=== PATIENT | male | born 1945 | race Caucasian/White ===

== ENCOUNTER 2018-10-07 07:43 | Inpatient (IN) | payer MEDICARE, OTHER ==
[2018-10-07] VITALS (9 sets, daily range): BP systolic 94–153; BP diastolic 49–75
[~2018-10-07] VITALS: Ht 170.2 cm; Wt 131.7 kg
[2018-10-07 08:10] LABS: BASO # 0.1 x10^3/uL (0.0-0.2); BASO % 1 % (0-3); EOS # 0.3 x10^3/uL (0.0-0.7); EOS % 4 % (0-3); HEMATOCRIT 29.3 % (39.0-53.0); HEMOGLOBIN 8.9 g/dL (13.0-17.5); LYMPH # 1.3 x10^3/uL (1.0-4.8); LYMPH % 16 % (24-48); MEAN CORPUSCULAR HEMOGLOBIN 27 pg (25-35); MEAN CORPUSCULAR HGB CONC 30 g/dL (31-37); MEAN CORPUSCULAR VOLUME 90 fL (79-100); MONO # 0.7 x10^3/uL (0.0-1.1); MONO % 9 % (0-9); NEUT # 5.4 x10^3uL (1.8-7.7); NEUT % 71 % (31-73); PLATELET COUNT 242 x10^3/uL (140-400); RED BLOOD COUNT 3.27 x10^6/uL (4.30-5.70); RED CELL DISTRIBUTION WIDTH 20.9 % (11.5-14.5); WHITE BLOOD COUNT 7.7 x10^3/uL (4.0-11.0)
--- NOTE | 2018-10-07 08:17 | PHYS DOC ---
Past History Past Medical History: Diabetes Adult General Chief Complaint Chief Complaint: ALTERED MENTAL STATUS HPI HPI Patient is a 72 year old MALE who presents with altered mental status. Patient is a resident at an assisted care facility. He was started on a new antidepressant yesterday and has had a decrease in his mental status since then. Patient is also being treated for wounds in his lower extremities as well as has a urinary catheter. History is limited from the patient because of his decreased mental status. EMS reports that his blood sugar was in the 130s. Review of his medication list shows that he was started on sertraline yesterday[ ] Review of Systems Review of Systems Constitutional: Denies fever or chills [] Eyes: Denies change in visual acuity, redness, or eye pain [] HENT: Denies nasal congestion or sore throat [] Respiratory: Denies cough or shortness of breath [] Cardiovascular: No chest pain or palpitations[] GI: Denies abdominal pain, nausea, vomiting, bloody stools or diarrhea [] : Denies dysuria or hematuria [] Musculoskeletal: Denies back pain or joint pain [] Integument: Denies rash or skin lesions [] Neurologic: D denies headache [] Endocrine: Denies polyuria or polydipsia [] All other systems were reviewed and found to be within normal limits, except as documented in this note. Allergies Allergies Allergies Coded Allergies Type Severity Reaction Last Updated Verified gemfibrozil Allergy Unknown 10/07/18 Yes glipizide Allergy Unknown 10/07/18 Yes niacin Allergy Unknown 10/07/18 Yes Uncoded Allergies Type Severity Reaction Last Updated Verified CLOTH TAPE Allergy Unknown 10/07/18 STATIN Allergy Unknown 10/07/18 Physical Exam Physical Exam Constitutional: Well developed, well nourished, no acute distress, non-toxic appearance. [] HENT: Normocephalic, atraumatic, bilateral external ears normal, oropharynx moist, no oral exudates, nose normal. [] Eyes: PERRLA, EOMI, conjunctiva normal, no discharge. [] Neck: Normal range of motion, no tenderness, supple, no stridor. [] Cardiovascular:Heart rate regular rhythm, no murmur [] Lungs & Thorax: Bilateral breath sounds clear to auscultation [] Abdomen: Bowel sounds normal, soft, no tenderness, no masses, no pulsatile masses. [] Skin: Warm, dry, no erythema, no rash. Patient has dressing on his left foot[] Back: No tenderness, no CVA tenderness. [] Extremities: No tenderness, no cyanosis, no clubbing, ROM intact, no edema. [] Neurologic: Alert and oriented to person, normal motor function, normal sensory function, no focal deficits noted. [] Psychologic: Affect flat, mood normal. [] EKG EKG EKG shows sinus rhythm, rate of 68, normal QRS a 57, QTc of 415 ms, no ST elevation. Nonspecific ST-T wave changes are present[] Radiology/Procedures Radiology/Procedures Head CT does not show any acute changes Chest x-ray shows evidence of congestion[] Course & Med Decision Making Course & Med Decision Making Pertinent Labs and Imaging studies reviewed. (See chart for details) ED course: Patient arrived, was placed in bed, tolerated exam well. Patient was transferred to and from [place] with any complications. After return of the labs and CT findings, patient was started on IV antibiotics, mild hydration was started as well given his CHF diagnosis but also covering for the renal insufficiency, and patient was given Kayexalate for the mild hyperkalemia. Consultation was made with Dr. MARTINEZ from the hospitalist service who will be admitting him. Medical decision making: There does not appear to be a significant stroke syndrome, no mass, no bleed noted on CT scan, patient's blood sugar was appropriate, no evidence of hypoxia, he is not somnolent consistent with narcotics. This may be due to the new antidepressant and so that will be held. Also having the indwelling catheter with subsequent urinary tract infection may also be contributing to altered mental status in a patient requiring assisted care facility.[] Dragon Disclaimer Dragon Disclaimer This electronic medical record was generated, in whole or in part, using a voice recognition dictation system. Departure Departure: Impression: Primary Impression: Altered mental status Additional Impressions: Urinary tract infection Hyperkalemia Renal insufficiency Congestive heart failure Disposition: ADMITTED INPATIENT Condition: STABLE Referrals: KAREN DENNEY MD (PCP) Problem Qualifiers Primary Impression: Altered mental status Altered mental status type: unspecified Qualified Codes: R41.82 - Altered mental status, unspecified Additional Impressions: Urinary tract infection Urinary tract infection type: site unspecified Hematuria presence: without hematuria Qualified Codes: N39.0 - Urinary tract infection, site not specified Congestive heart failure Heart failure type: unspecified Heart failure chronicity: unspecified Qualified Codes: I50.9 - Heart failure, unspecified LISA BUCKNER DO Oct 07, 2018 08:16
[2018-10-07 08:21] LABS: BILIRUBIN,URINE NEG (NEG); CLARITY,URINE CLOUDY; COLOR,URINE YELLOW; GLUCOSE,URINE NEG (NEG)
[2018-10-07 08:22] LABS: BACTERIA,URINE MANY /HPF (0-FEW); HYALINE CASTS, URINE MOD /HPF; NITRITE,URINE POS (NEG); SQUAMOUS EPITHELIAL CELL,UR OCC /LPF; UROBILINOGEN,URINE 0.2 mg/dL (0.2 mg/dL)
--- NOTE | 2018-10-07 08:24 | RAD ---
CT of the head without contrast, 10/07/2018: HISTORY: Altered mental status There is moderate cerebral atrophy. The ventricles are mildly prominent on a compensatory basis. There is no shift of the midline structures. There is no evidence of acute intracranial hemorrhage or mass effect. IMPRESSION: 1. Moderate cerebral atrophy. 2. No acute intracranial abnormality is detected. RS Compliance Statement: One or more of the following individualized dose reduction techniques were utilized for this examination: 1. Automated exposure control 2. Adjustment of the mA and/or kV according to patient size 3. Use of iterative reconstruction technique Electronically signed by: Denis Bennett MD (10/07/2018 8:21 AM) [facility]
[2018-10-07 08:29] LABS: ALBUMIN 2.5 g/dL (3.4-5.0); ALBUMIN/GLOBULIN RATIO 0.5 (1.0-1.7); CALCIUM 8.4 mg/dL (8.5-10.1); CREATININE 1.7 mg/dL (0.7-1.3); GFR 39.6; MAGNESIUM 2.4 mg/dL (1.8-2.4); POTASSIUM 5.8 mmol/L (3.5-5.1); TOTAL BILIRUBIN 0.4 mg/dL (0.2-1.0); TOTAL PROTEIN 7.8 g/dL (6.4-8.2)
--- NOTE | 2018-10-07 08:42 | RAD ---
Portable chest, 10/07/2018: HISTORY: Altered mental status, shortness of breath The left lower chest was not completely included on this exam. The heart appears enlarged with mild vascular congestion. Mild left basilar infiltrate cannot be excluded. Follow-up PA and lateral chest radiographs may be useful for further evaluation, if clinically indicated. Electronically signed by: Denis Bennett MD (10/07/2018 8:39 AM) [facility]
[2018-10-07] MEDS ORDERED: LACTULOSE 20 GM/30 ML SOLUTION. PO ONE (08:45)
[2018-10-07] MEDS ORDERED: ONDANSETRON PF 4 MG/2 ML VIAL. IV PRN (08:45)
[2018-10-07] MEDS ORDERED: ACETAMINOPHEN 325 MG TABLET PO PRN (08:45)
[2018-10-07] MEDS ORDERED: SODIUM POLYSTYRENE SULFONATE 15 GM/60 ML ORAL.SUSP. PO ONE (08:45)
[2018-10-07] MEDS ORDERED: IV NORMAL SALINE 1,000ML 1,000 ML IV SCH (09:00)
[2018-10-07] MEDS ORDERED: IV NORMAL SALINE 50ML 50 ML ONE (09:12)
[2018-10-07] MEDS ORDERED: cefTRIAXone SODIUM 1 GM VIAL IV ONE (09:12)
[2018-10-07 09:40] LABS: HYPOCHROMIA SLIGHT; PLT ESTIMATE ADEQUATE (ADEQUATE); POLYCHROMASIA SLIGHT
[2018-10-07 09:41] LABS: ANISOCYTOSIS MOD; TARGET CELLS PRESENT
--- NOTE | 2018-10-07 11:01 | EKG ---
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
[2018-10-07] MEDS ORDERED: DOCU-109 PO (12:01)
[2018-10-07] MEDS ORDERED: CLOP75TA PO (12:01)
[2018-10-07] MEDS ORDERED: TRAZ-85 PO (12:01)
[2018-10-07] MEDS ORDERED: METO100T7 PO (12:01)
[2018-10-07] MEDS ORDERED: ACET500T68 PO (12:01)
[2018-10-07] MEDS ORDERED: MULT1TAB52 PO (12:01)
[2018-10-07] MEDS ORDERED: FERR325T14 PO (12:01)
[2018-10-07] MEDS ORDERED: MELA3TAB2 PO (12:01)
[2018-10-07] MEDS ORDERED: WARF2TAB PO (12:01)
[2018-10-07] MEDS ORDERED: CETI10TA16 PO (12:01)
[2018-10-07] MEDS ORDERED: OXYC10TA PO (12:01)
[2018-10-07] MEDS ORDERED: ALBU2.5V14 NEB (12:01)
[2018-10-07] MEDS ORDERED: CALC-157 PO (12:01)
[2018-10-07] MEDS ORDERED: PREG150C PO (12:01)
[2018-10-07] MEDS ORDERED: SERT25TA4 PO (12:01)
[2018-10-07] MEDS ORDERED: MESA1.2T PO (12:01)
[2018-10-07] MEDS ORDERED: SERT50TA8 PO (12:01)
[2018-10-07] MEDS ORDERED: TAMS0.4C2 PO (12:01)
[2018-10-07] MEDS ORDERED: CHOL200044 PO (12:01)
[2018-10-07] MEDS ORDERED: EZET10TA26 PO (12:01)
[2018-10-07] MEDS ORDERED: LOPE2CAP88 PO (12:01)
[2018-10-07] MEDS ORDERED: ZINC56.7 TP (12:02)
[2018-10-07] MEDS ORDERED: WARF3TAB54 PO (12:02)
[2018-10-07] MEDS ORDERED: DEXTROSE 50% 25 GM / 50ML DISP.SYRIN. IV PRN (12:15)
[2018-10-07] MEDS: NALOXONE 0.4 MG/ML VIAL. IV PRN ×2 (15:20→17:48)
[2018-10-07 15:39] LABS: BGAS PH 7.24 (7.35-7.46)
--- NOTE | 2018-10-07 15:45 | HP ---
ADMIT DATE: 10/07/2018 HISTORY OF PRESENT ILLNESS: The patient is a 72-year-old patient , who resides at the [facility] and was brought to the Emergency Room with altered mental status. The patient is a resident at an assisted living facility at the [facility], was started on a new antidepressant yesterday and noted has had decrease in mental status since then. He was also treated for wounds in his lower extremities as well as urinary tract infection, history is very limited. The patient is encephalopathic. His blood sugar was reportedly 130 mg by the emergency medical service personnel. He was evaluated in the Emergency Room extensively. His lab work was unremarkable. His serum sodium is normal. He has hyperkalemia, chronic kidney disease. His blood sugar was 154 and urinalysis showed the urine was yellow, cloudy, positive for nitrites and small amount of leukocyte esterase. There are 3-5 rbc's, 11-20 wbc's and too many bacteria. The patient was basically admitted. He has had CT scan of the head, which was unremarkable and showed that there is moderate cerebral atrophy. The ventricles are mildly prominent. On a compensatory basis there is no shift of the midline structures. There is no evidence of acute intracranial hemorrhage or mass effect and was admitted to continue treatment, was given 1 gram of ceftriaxone. He was also given some sodium Kayexalate and lactulose for his hyperkalemia, was admitted for gentle rehydration and to continue with IV antibiotic and to start hopefully the process of physical and occupational therapy once his mental status improves. PAST MEDICAL HISTORY: Significant for congestive heart failure, benign prostatic hypertrophy, hyperlipidemia, peripheral diabetic neuropathy, has chronic venous stasis on both lower extremities, morbid obesity, obstructive sleep apnea, atrial fibrillation, type 2 diabetes mellitus. He is on long-term use of anticoagulation, diabetic foot ulcers, tobacco use, multiple joint pain, hyperkalemia, history of malignant neoplasm of the skin bilateral, pseudophakia effective. He has glaucoma, history of pulmonary embolism, history of deep vein thrombosis. PAST SURGICAL HISTORY: Significant for bilateral knee surgery. He has also renal stone removal. FAMILY HISTORY: Unobtainable. SOCIAL HISTORY: He is ; however, he lives at an assisted living facility in the [facility]. He apparently continued to smoke, does not drink alcohol or use any recreational drugs. He has a saloni chair. ALLERGIES: He is allergic CLOTH TAPE, STATIN, GEMFIBROZIL, GLIPIZIDE, and NIACIN. MEDICATIONS: He is currently on following medications: He is on cetirizine 10 mg once a day. He is on albuterol sulfate 2.5 mg and 0.5 mL by nebulizer 4 times a day, tamsulosin 0.4 mg at bedtime, ferrous sulfate 325 mg daily, warfarin sodium 2 mg every Wednesday, warfarin 3 mg every Wednesday, Wednesday, Wednesday. He is on Plavix 75 mg once a day, Zetia 10 mg once a day, metoprolol tartrate 100 mg twice a day, oxycodone 10 mg every 4 hours as needed, acetaminophen 650 mg 4 times a day, pregabalin 150 mg 3 times a day, sertraline 25 mg once a day, sertraline 50 mg once a day, trazodone 50 mg once a day. He is on calcium carbonate with vitamin D one tablet once a day, loperamide 2 mg twice a day as needed. He is on Colace 100 mg twice a day. Mesalamine 1.2 grams daily, zinc oxide applied topically 3 times a day, cholecalciferol 2000 international units once a day, multivitamin 1 tablet once a day, and melatonin 3 mg at bedtime. REVIEW OF SYSTEMS: By the time I saw him in the floor the patient was clearly unresponsive. He does open his eyes occasionally, but make some noise, but does not really respond verbally. He has some twitching on his right eye. He was pale, but no jaundice, cyanosis, or thyromegaly. No jugular distention, but has bilateral chronic venous stasis in both lower extremities. PHYSICAL EXAMINATION: VITAL SIGNS: His heart rate was 57, blood pressure was 105/58, temperature was 97.6, respiratory rate was 20, and oxygen saturation was 94% on 2 liters of oxygen. HEAD, EYES, EARS, NOSE AND THROAT: Showed normocephalic, atraumatic. NECK: Supple. HEART: Showed normal first and second heart sounds. No gallop, rub or murmur. CHEST: Clear to auscultation. No crepitation or rhonchi. ABDOMEN: Distended, soft, nontender. NEUROLOGIC: He is encephalopathic. He does open his eyes occasionally, makes some noise, but does not really respond verbally. All his cranial nerves seemed to be grossly intact. He moves his upper extremities spontaneously to much good extent than his lower extremities. He has chronic venous stasis ulcers in both lower extremities. His blood sugar when I saw him was 135 mg/dL. LABORATORY DATA: His lab work on arrival showed a white cell count of 7700, hemoglobin 9, hematocrit 29, MCV 90 and platelet count of 242,000. His chemistry showed a serum sodium 135, potassium 5.8, chloride 101, bicarbonate 24, anion gap of 10, BUN 52, creatinine 1.7, estimated GFR was 39 mL per minute, his glucose 154, calcium was 8.4, magnesium was 2.4. Total bilirubin, AST, ALT, alkaline phosphatase were normal. His beta natriuretic peptide was 5347. Total protein was 7.8, albumin 2.5. His prothrombin time was 18.7, INR of 1.9. His urinalysis showed the urine was yellow, cloudy with a pH of 6, specific gravity at 1.025. There was a trace of protein, negative for glucose, ketones with moderate amount of blood, positive for nitrite, negative for bilirubin. There is small amount of leukocyte esterase, 3-5 rbc's, 11-20 wbc's and too many bacteria. His CT scan of the head showed that the patient has moderate cerebral atrophy. The ventricles are mildly prominent on a compensatory basis. There is no shift to the midline structure. There is no evidence of acute intracranial hemorrhage or mass effect. Chest x-ray showed that the left lower chest was not completely included. The heart appears enlarged with mild vascular congestion, mild left basilar infiltrate cannot be excluded. Followup PA and lateral chest x-ray and may be useful for further evaluation if clinically indicated. PLAN: The patient was admitted, started on IV Rocephin. I did start him on Keppra, given that he has altered mental status and seemed to have some form of partial seizures with twitching in his right side of the face. I will repeat his CT scan of the head without contrast. We will give him Narcan 0.4 mg diluted and 10 mL of normal saline to be given slowly to reverse the effect of narcotic if any. I will give him 50 mL of 50% dextrose to make sure that the hypoglycemia is not contributing to his altered mental status and we will check his arterial blood gases to make carbon dioxide narcosis is not causing his altered mental status and I would consult Dr. Guillaume as I think he might have partial seizures. ALFA MARTINEZ MD DR: JULIA/jason JOB#: [id number] / [id number]
[2018-10-07 15:50] LABS: HEMATOCRIT 30.7 % (39.0-53.0); HEMOGLOBIN 9.2 g/dL (13.0-17.5); RED BLOOD COUNT 3.4 x10^6/uL (4.30-5.70); WHITE BLOOD COUNT 7.8 x10^3/uL (4.0-11.0)
[2018-10-07 15:58] LABS: ALBUMIN 2.5 g/dL (3.4-5.0); ALBUMIN/GLOBULIN RATIO 0.5 (1.0-1.7); CALCIUM 8.7 mg/dL (8.5-10.1); CREATININE 1.7 mg/dL (0.7-1.3); GFR 39.6; MAGNESIUM 2.5 mg/dL (1.8-2.4); POTASSIUM 5.7 mmol/L (3.5-5.1); TOTAL BILIRUBIN 0.3 mg/dL (0.2-1.0); TOTAL PROTEIN 7.9 g/dL (6.4-8.2)
--- NOTE | 2018-10-07 16:35 | RAD ---
Portable chest, 10/07/2018, 3:36 PM HISTORY: Shortness of breath, altered mental status Comparison is made to a study from earlier the same day. The heart is at the upper limits of normal size. The pulmonary vascularity is congested with loss of vascular margination. Similar findings were present earlier in the day. No definite pleural fluid is seen. IMPRESSION: Vascular congestion congestion with loss of vascular margination suggesting mild perihilar-perivascular pulmonary edema. Electronically signed by: Denis Bennett MD (10/07/2018 4:31 PM) [facility]
--- NOTE | 2018-10-07 16:43 | RAD ---
EXAM: Head CT without contrast. HISTORY: Mental status changes. TECHNIQUE: Computed tomographic images of the head were obtained without contrast. *One or more of the following individualized dose reduction techniques were utilized for this examination: 1. Automated exposure control. 2. Adjustment of the mA and/or kV according to patient size. 3. Use of iterative reconstruction technique. COMPARISON: CT performed earlier on the same date. FINDINGS: There is no convincing acute or subacute hemorrhage. There is slight increased density within the right caudate nucleus which is likely artifactual. There is cerebral atrophy. There is decreased attenuation within the cerebral white matter, likely due to chronic small vessel disease. The orbits are unremarkable. There is mild ethmoid and sphenoid sinus mucosal thickening. The mastoid air cells are clear. No calvarial lesion is seen. IMPRESSION: 1. No acute intracranial finding. Note is made that MRI is more sensitive for acute infarction. 2. Decreased attenuation within the cerebral white matter, likely due to chronic small vessel disease. 3. Cerebral atrophy. Electronically signed by: Sapphire Garcia MD (10/07/2018 4:40 PM) [facility] [place]
[2018-10-07] MEDS ORDERED: FUROSEMIDE 40 MG/4 ML VIAL IVP ONE (16:45)
[2018-10-07] MEDS: INSULIN LISPRO 300 UNITS/3 ML INSULN.PEN. SQ SCH (17:00)
[2018-10-08] VITALS (20 sets, daily range): BP systolic 91–137; BP diastolic 49–90
[2018-10-08 06:42] LABS: BASO # 0.1 x10^3/uL (0.0-0.2); BASO % 1 % (0-3); EOS # 0.2 x10^3/uL (0.0-0.7); EOS % 3 % (0-3); HEMATOCRIT 27.1 % (39.0-53.0); HEMOGLOBIN 8.4 g/dL (13.0-17.5); LYMPH % 17 % (24-48); MEAN CORPUSCULAR HEMOGLOBIN 27 pg (25-35); MEAN CORPUSCULAR HGB CONC 31 g/dL (31-37); MEAN CORPUSCULAR VOLUME 87 fL (79-100); MONO # 0.6 x10^3/uL (0.0-1.1); MONO % 9 % (0-9); NEUT # 4.2 x10^3uL (1.8-7.7); NEUT % 70 % (31-73); PLATELET COUNT 235 x10^3/uL (140-400); RED CELL DISTRIBUTION WIDTH 20.6 % (11.5-14.5)
[2018-10-08 06:58] LABS: ALBUMIN 2.2 g/dL (3.4-5.0); ALBUMIN/GLOBULIN RATIO 0.5 (1.0-1.7); CALCIUM 8.3 mg/dL (8.5-10.1); CREATININE 1.2 mg/dL (0.7-1.3); GFR 59.2; TOTAL BILIRUBIN 0.4 mg/dL (0.2-1.0)
[2018-10-08] MEDS: INSULIN LISPRO 300 UNITS/3 ML INSULN.PEN. SQ SCH ×3 (08:00→17:28)
[2018-10-08] MEDS ORDERED: NON FORMULARY ITEM (Albuterol Sulfate (Albuterol Sulfate Conc Neb Soln) 1 VIAL) NEB PRN (09:45)
[2018-10-08] MEDS ORDERED: LOPERAMIDE 2 MG CAPSULE PO PRN (10:00)
[2018-10-08] MEDS: METOPROLOL TART IMMED RELEASE 50 MG TABLET PO SCH ×2 (10:00→20:40)
[2018-10-08] MEDS: CHOLECALCIFEROL (VITAMIN D3) 1,000 UNIT TABLET PO SCH (10:27)
[2018-10-08] MEDS: MESALAMINE 1.2 GM TABLET.DR PO SCH (10:27)
[2018-10-08] MEDS: MULTIVITAMIN with MINERAL TABLET. PO SCH (10:27)
[2018-10-08] MEDS: CETIRIZINE HCL 10 MG TABLET PO SCH (10:27)
[2018-10-08] MEDS: SERTRALINE 50 MG TABLET. PO SCH (10:27)
[2018-10-08] MEDS: EZETIMIBE 10 MG TABLET PO SCH (10:27)
[2018-10-08] MEDS: DOCUSATE SODIUM 100 MG CAPSULE PO SCH ×2 (10:27→20:40)
[2018-10-08] MEDS ORDERED: ALBUTEROL SULFATE 2.5 MG/3 ML NEBU. NEB PRN (10:45)
[2018-10-08] MEDS: SODIUM CHLORIDE 0.65% NASAL SPRAY 45ML BOTTLE. NS PRN (13:24)
--- NOTE | 2018-10-08 13:26 | CONS ---
DATE OF CONSULTATION: 10/07/2018 NEUROLOGY CONSULTATION REASON FOR CONSULTATION: Mental status changes. HISTORY OF PRESENT ILLNESS: This is a 72-year-old right-handed male, who resides at [facility], was admitted through Emergency Room after he presented with chief complaint of 2-day history of slowly progressive mental status changes. According to his , the patient has been doing well on Thanksgiving, but he has been deteriorating in the last 24 hours. In the Emergency Room, the patient was confused and not able to provide any information. According to the , the patient has had coronary artery disease. He received 2 stents at [facility] in [place] approximately months ago and he was told he had to have 2 more stents and possible pacemaker placement for ongoing atrial fibrillation. The also stated that he was placed on antidepressant, probably Zoloft approximately 3 weeks ago. He has been taking gabapentin since 09/2017 for shingles. He also complains of right shoulder pain, likely due to underlying degenerative joint versus rotator cuff tear. Therefore, he has been on hydrocodone. Because of insomnia, he has been placed also on hypnotic agent. Currently, the patient is awake and he complains of pain of the right shoulder and generalized weakness. He denies headaches, visual disturbances, chest pain, shortness of breath or palpitations. The patient has been ambulating with a wheelchair and he has been able to transfer himself from the wheelchair to the bed. He denies any recent falls or injuries. Apparently, the patient has been in assisting facility for rehabilitation. PAST MEDICAL HISTORY: Significant for coronary artery disease, required 2 stents placement a month ago; atrial fibrillation; congestive heart failure; pulmonary embolism; deep venous thrombosis; diabetes mellitus with severe peripheral vascular disease in the bilateral lower extremities; morbid obesity; skin cancer; glaucoma; depression; benign prostate hypertrophy; hyperlipidemia and peripheral neuropathy in the lower extremities. PAST SURGICAL HISTORY: Significant for bilateral knee surgeries and renal stone removal. FAMILY HISTORY: Noncontributory. SOCIAL HISTORY: The patient is . He lives in assisted living facility in the [facility] here in [place]. He smokes, but he denies alcohol drinking or illicit drug use. REVIEW OF SYSTEMS: A 10-point review of system was performed as mentioned above in history of present illness, otherwise unremarkable. ALLERGIES: TAPE, STATIN, GEMFIBROZIL, GLIPIZIDE, and NIACIN. CURRENT HOME MEDICATIONS: Tylenol, albuterol inhaler, calcium and vitamin D, cetirizine, Plavix, Zetia, furosemide, ferrous sulfate, insulin Humalog, melatonin, mesalamine, metoprolol, multivitamins, sertraline, tamsulosin, zinc oxide, warfarin, and Lyrica at 150 t.i.d. PHYSICAL EXAMINATION: GENERAL: Obese male, not in acute distress. He weighs 297 pounds. VITAL SIGNS: Pulse is 80 and regular, respiratory rate 12, blood pressure 113/71, oxygen sats 97% on 4 liters per nasal cannula. HEENT: Normocephalic, atraumatic, otherwise unremarkable. NECK: Supple. Negative for carotid bruit, JVD or thyromegaly. LUNGS: With diminished breath sounds. No wheezing. CARDIOVASCULAR: Regular rhythm, normal S1, S2. There is no S3, S4, or murmur. ABDOMEN: Soft. Bowel sounds positive. EXTREMITIES: Negative for cyanosis, clubbing. Extremities are positive for edema with bluish discoloration. NEUROLOGICAL EXAM: Mental Status: The patient is alert and oriented to himself. He names the city. He is disoriented to time. Speech is fluent. There is no language dysfunction. Memory, judgment and abstracting thinking are fair. The patient denies hallucination or delusion. Cranial Nerves: Visual link are full. The pupils are reactive to light and accommodation. The extraocular movements are intact. There is no nystagmus. There is no facial, motor, or sensory deficit. Hearing appeared to be intact. The palate is elevated symmetrically. Sternocleidomastoid muscles are powerful bilaterally. The patient shrugs his shoulder, more on the left side secondary to pain on the right side. The strength is 4/5 in the upper extremities, was decreased on the right side secondary to pain of the shoulder. The strength in the lower extremity is 3/5. Sensory examination revealed diminished pinprick and light touch senses throughout in the upper and lower extremities. Deep tendon reflexes were symmetric and hypoactive with absent Achilles responses. Gait not tested. LABORATORY DATA: CBC revealed white blood cells 7.7 thousand, hemoglobin 8.9, hematocrit 29.3, platelet count 242,000. Chemistry revealed sodium of 137, potassium 5.7, chloride 102, CO2 22, BUN 55, creatinine 1.7, glucose 149, calcium is 8.7, magnesium is high at 2.5. Liver enzymes are normal. Troponin level is normal. Urinalysis is consistent with urinary tract infections with white blood cells of 11-20 and small urinary leukocyte esterase and many bacteria. PT is 18.7 and INR 1.9. DIAGNOSTIC DATA: Head CT scan revealed moderate cerebral atrophy with no acute intracranial process, but it shows also small vessel ischemic changes. A chest x-ray revealed mild vascular congestion with mild left basilar infiltrate. IMPRESSION: 1. Acute encephalopathy, probably multifactorial; multifactorial includes infections as urinary tract infections and metabolic with hyperkalemia, hypermagnesemia and dehydration/renal insufficiency. 2. Multiple medical problems include morbid obesity, coronary artery disease status post stent placement x 2, congestive heart failure, peripheral neuropathy in the upper and lower extremities, severe right shoulder pain probably secondary to rotator cuff tear, diabetes mellitus type 2, hyperkalemia, atrial fibrillation and severe peripheral vascular disease. RECOMMENDATIONS: 1. Correct underlying encephalopathy and start the patient on antibiotic for urinary tract infection and correct the underlying metabolic derangement as hyperkalemia. 2. Continue with current home medication and medical care initiated by Dr. Mobley. M Jewels JEAN-BAPTISTE MD DR: JEM/jason JOB#: [id number] / [id number]
[2018-10-08] MEDS: ZINC OXIDE 20% TOPICAL OINTMENT 28GM TUBE. TP SCH ×2 (13:31→20:40)
[2018-10-08] MEDS ORDERED: FUROSEMIDE 40 MG/4 ML VIAL IVP ONE (15:15)
[2018-10-08] MEDS ORDERED: WARFARIN 5 MG TABLET. PO ONE (16:00)
--- NOTE | 2018-10-08 18:02 | CONS ---
DATE OF CONSULTATION: REASON FOR CONSULTATION: Management of multiple cardiovascular comorbidities. HISTORY OF PRESENT ILLNESS: The patient is a pleasant 72-year-old man who was admitted to [facility] in the setting of somnolence and mental status changes. This was felt to be related to multiple pain medications. Since holding his pain medications, he has had resolution of his mental status change. Cardiology has been asked to comment on his multiple cardiac issues, which are as noted below. Of note, the patient has been in multiple hospitals over the last 2-3 months including PCI at [place] [place] in July. He has also been admitted to [facility] and [facility] for various issues. At this present time, the patient is mostly using a power wheelchair due to inability to ambulate. He has exertional dyspnea. He occasionally has exertional chest pain. He does not have any syncope, but he does report that he was advised of a pacemaker through [facility] or one of the other hospitals he was admitted to, but he is unclear on history. His corroborates some of this information. PAST MEDICAL HISTORY: As follows: 1., PE, on anticoagulation. 2. Moderate aortic valve stenosis with an ejection fraction of 60% by echo on 08/05/2018 with 1+ mitral regurgitation. 3. Pulmonary hypertension, likely secondary to left-sided heart failure with RVSP of 60 mmHg. 4. Obstructive sleep apnea. 5. Coronary artery disease with multivessel disease, status post PCI, presumably to the LAD in July 2018. 6. PAD with extensive below-knee vascular disease. 7. Chronic diastolic heart failure. 8. Dyslipidemia. 9. Neuropathy. 10. Sleep apnea. 11. Chronic atrial fibrillation. 12. Diabetes type 2. 13. Prior history of tobacco abuse. ALLERGIES: CLOTH TAPE, STATIN, GEMFIBROZIL, GLIPIZIDE, and NIACIN. MEDICATIONS: Current cardiac medications in the hospital are as follows: 1. Plavix 75 mg daily. 2. Warfarin 5 mg daily. 3. Metoprolol 100 mg p.o. b.i.d. 4. Zetia 5 mg daily. REVIEW OF SYSTEMS: Negative for 10 out of 14 systems reviewed, unless otherwise mentioned above in HPI. PHYSICAL EXAMINATION: VITAL SIGNS: Afebrile, 93, 25, 124/70, 96% on room air. GENERAL: He is alert and oriented to place and time and person. HEAD AND NECK: Unremarkable. CARDIAC: Irregularly irregular without any obvious murmurs, rubs, or gallops. He does have a diminished S2. LUNGS: Fairly clear to auscultation anteriorly bilaterally, although the breath sounds are diminished throughout due to obesity and difficult to auscultation. ABDOMEN: Protuberant, obese and nontender. He has bilateral inguinal Magalie likely. EXTREMITIES: Bilateral chronic venous stasis changes with skin changes below the knees and may be related to a component of diabetic neuropathy. NEUROLOGIC: Diffuse weakness. DIAGNOSTIC STUDIES: Hemoglobin 8.4, platelets 235, creatinine 1.2, and BUN of 48. INR 1.9. Chest x-ray demonstrates vascular congestion with pulmonary edema. Echocardiogram as reported above. EKG demonstrates atrial fibrillation without any obvious ischemic findings. Catheterization per report from July 2018 reveals 3-vessel disease with 90% proximal LAD, 60% first diagonal, 90% mid left circumflex, and 50% OM1 and 70% proximal RCA lesion. Suspect he was felt to be high risk for bypass and therefore underwent PCI presumably per the family and had 2 stents. Location and sizes are unknown. IMPRESSION: 1. Acute on chronic diastolic heart failure. 2. Mental status changes, likely to over medication. 3. Chronic kidney disease. 4. Chronic peripheral arterial disease. 5. Dyslipidemia. 6. Hypertension. RECOMMENDATIONS: 1. No indication for cardiac cath at this time. 2. Add Lasix 40mg IV BID 3. Await records from [facility] and Count Includes [facility]. FABRICIO LOPEZ MD DR: SANCHEZ/jason JOB#: [id number] / [id number] ADRIÁN
[2018-10-08] MEDS: MELATONIN 3 MG TABLET PO SCH (20:40)
[2018-10-08] MEDS: TAMSULOSIN 0.4 MG CAP.ER.24H. PO SCH (20:43)
[2018-10-08] MEDS: NYSTATIN TOPICAL POWDER 15GM BOTTLE. TP SCH (21:12)
--- NOTE | 2018-10-08 21:58 | PN ---
DATE: SUBJECTIVE: The patient denies any new medical or neurological complaints; however, he continued to have generalized weakness, severe pain of the right shoulder. OBJECTIVE: GENERAL: Obese male, not in acute distress. VITAL SIGNS: Blood pressure 117/80, respiratory rate is 17, pulse is 93, oxygen saturation is 98% on 2.5 liters by nasal cannula and temperature 98. HEENT: Normocephalic, atraumatic, otherwise unremarkable. NECK: Supple. Negative for carotid bruit, JVD or lymphadenopathy. LUNGS: With diminished breath sounds bilaterally. CARDIOVASCULAR: Regular rhythm, normal S1, S2. ABDOMEN: Soft. Bowel sounds positive. EXTREMITIES: Consistent with bilateral chronic venous stasis with a bluish pigmentation due to underlying chronic peripheral vascular disease. NEUROLOGICAL EXAM: Mental Status: The patient is alert to himself and place. Speech is more fluent. There is no language dysfunction. Memory, judgment, and abstract thinking are fair. The patient denies hallucination or delusion. Cranial nerves are intact. Motor examination revealed generalized weakness with muscle strength of 3/5 in the lower extremity and 4/5 in the upper extremities. Sensory examination revealed diminished pinprick and light touch senses throughout the upper and lower extremities. Deep tendon reflexes were symmetric and hypoactive with absent Achilles responses. Repeated head CT scan revealed no acute intracranial process, but it showed as chronic small vessel ischemic changes and repeated a chest x-ray revealed vascular congestion consistent with early pulmonary edema. IMPRESSION: 1. Acute encephalopathy over the past 2 days -- slightly improved, etiology uncertain, probably multifactorial including medication side effects and urinary tract infections. 2. Multiple medical problems include coronary artery disease, congestive heart failure, chronic peripheral vascular disease, history of peripheral neuropathy in the upper and lower extremities, diabetes mellitus, urinary tract infections, obesity and a history of obstructive sleep apnea. RECOMMENDATIONS: 1. Continue with current medical care initiated by Dr. Mobley and Cardiology. 2. From neurologic standpoint, the patient's neurological status has improved. M Jewels JEAN-BAPTISTE MD DR: JEM/jason JOB#: [id number] / [id number]
[2018-10-09] VITALS (10 sets, daily range): BP systolic 95–151; BP diastolic 58–82
[2018-10-09 07:11] LABS: HEMATOCRIT 27.5 % (39.0-53.0); HEMOGLOBIN 8.7 g/dL (13.0-17.5); RED BLOOD COUNT 3.18 x10^6/uL (4.30-5.70); WHITE BLOOD COUNT 5.8 x10^3/uL (4.0-11.0)
[2018-10-09 07:30] LABS: ALBUMIN 2.2 g/dL (3.4-5.0); ALBUMIN/GLOBULIN RATIO 0.5 (1.0-1.7); CALCIUM 8.2 mg/dL (8.5-10.1); CREATININE 0.9 mg/dL (0.7-1.3); GFR 82.5; POTASSIUM 4.3 mmol/L (3.5-5.1); TOTAL BILIRUBIN 0.4 mg/dL (0.2-1.0); TOTAL PROTEIN 6.8 g/dL (6.4-8.2)
[2018-10-09] MEDS: INSULIN LISPRO 300 UNITS/3 ML INSULN.PEN. SQ SCH ×3 (07:42→17:00)
[2018-10-09] MEDS: MESALAMINE 1.2 GM TABLET.DR PO SCH (07:48)
[2018-10-09] MEDS: FUROSEMIDE 40 MG/4 ML VIAL IVP SCH ×2 (07:48→15:01)
[2018-10-09] MEDS: METOPROLOL TART IMMED RELEASE 50 MG TABLET PO SCH ×2 (07:49→19:51)
[2018-10-09] MEDS: DOCUSATE SODIUM 100 MG CAPSULE PO SCH ×2 (07:49→19:47)
[2018-10-09] MEDS: CETIRIZINE HCL 10 MG TABLET PO SCH (07:50)
[2018-10-09] MEDS: MULTIVITAMIN with MINERAL TABLET. PO SCH (07:50)
[2018-10-09] MEDS: SERTRALINE 50 MG TABLET. PO SCH (07:50)
[2018-10-09] MEDS: CHOLECALCIFEROL (VITAMIN D3) 1,000 UNIT TABLET PO SCH (07:50)
[2018-10-09] MEDS: CLOPIDOGREL BISULFATE 75 MG TABLET PO SCH (07:50)
[2018-10-09] MEDS: CALCIUM CARB/VIT D3 500/200 TABLET PO SCH (07:50)
[2018-10-09] MEDS: EZETIMIBE 10 MG TABLET PO SCH (07:50)
[2018-10-09] MEDS: FERROUS SULFATE 325 MG TABLET. PO SCH (07:50)
[2018-10-09] MEDS: NYSTATIN TOPICAL POWDER 15GM BOTTLE. TP SCH ×2 (08:36→19:51)
[2018-10-09] MEDS: ZINC OXIDE 20% TOPICAL OINTMENT 28GM TUBE. TP SCH ×3 (08:36→19:51)
--- NOTE | 2018-10-09 13:45 | PN ---
DATE: SUBJECTIVE: The patient denies any new medical or neurological complaints; however, he stated "I am feeling hopeless." He denies chest pain, shortness of breath or palpitations. OBJECTIVE: GENERAL: Obese male, not in acute distress. VITAL SIGNS: Blood pressure 134/68, respiratory rate is 23, pulse is 88 and irregular, oxygen saturation 99% on 2.5 liters via nasal cannula. HEENT: Normocephalic, atraumatic, otherwise unremarkable. NECK: Supple. Negative for carotid bruit, JVD, lymphadenopathy or thyromegaly. LUNGS: Diminished breath sounds bilaterally. CARDIOVASCULAR: Regular rhythm, normal S1 and loud S2, no murmur. ABDOMEN: Soft. Bowel sounds positive. EXTREMITIES: Positive for chronic venous stasis with bluish discolorations and no pulse felt. NEUROLOGICAL EXAM: Mental Status: The patient is alert to himself and the situation. He is alert to the place. He is somewhat disoriented to date. Speech is more fluent. There is no language dysfunction. Memory, judgment, and abstract thinking are fair. The patient denies hallucination or delusion. Cranial nerves are grossly intact. Motor examination revealed no focal deficit; however, the patient is generally weak and the strength of the muscle is 3/5 throughout. Decreased range of motions of the right shoulder joint secondary to severe pain and possible underlying right rotator cuff tear. The patient moves his left upper extremity normally with the strength is 4/5. Sensory examination revealed diminished pinprick and light touch senses throughout his upper and lower extremities bilaterally. Deep tendon reflexes were symmetric and hypoactive with absent Achilles responses. LABORATORY DATA: CBC revealed white blood cells of 5.8 thousand, hemoglobin 8.7, hematocrit 27.5, platelet count 240,000. Chemistry revealed sodium of 139, potassium 4.3, chloride 103, CO2 27, BUN 38, creatinine 0.9, glucose is 124, and calcium 8.2. CRP is high at 61.8. Urinalysis consistent with urinary tract infections, nasal screen MRSA is positive. IMPRESSION: 1. Acute encephalopathy -- improved, probably multifactorial includes systemic infections and possibly side effects of medications overdose. 2. Coronary artery disease, status by a recent stenting procedures x 2. 3. Recent cardiac catheterization revealed evidence of oskeudlj-bo-kupvvq aortic stenosis. 4. Multiple medical problems include obesity, obstructive sleep apnea, hypertension, hyperlipidemia, peripheral vascular disease and peripheral neuropathy, probably secondary to diabetes mellitus, atrial fibrillations with a history of pulmonary embolism and deep venous thromboses of the lower extremities. RECOMMENDATIONS: The patient is neurologically stable. We will follow with continuation care initiated by Dr. Mobley and Cardiology recommendations. M Jewels JEAN-BAPTISTE MD DR: JEM/jason JOB#: [id number] / [id number]
[2018-10-09] MEDS ORDERED: WARFARIN 3 MG TABLET. PO ONE (16:00)
--- NOTE | 2018-10-09 16:16 | PN ---
DATE: 10/09/2018 SUBJECTIVE: The patient is resting slightly propped up in bed, in no apparent distress. On questioning him, he denied any chest pain or shortness of breath. He stated that he did not have a good night sleep. However, he is definitely more awake, alert, responding appropriately, asking lots of question. His urine output yesterday over the last 24 hours was 4250. PHYSICAL EXAMINATION: GENERAL: When I examined him, he looked somewhat pale, but no jaundice, cyanosis, or thyromegaly. No jugular venous distension. No limb edema. VITAL SIGNS: His heart rate was 71, blood pressure was 125/71, temperature was 98, respiratory rate was 20, and oxygen saturation was 95% and to have 2.5 liter of oxygen. HEAD, EYES, EARS, NOSE AND THROAT: Showed normocephalic, atraumatic. NECK: Supple. HEART: Showed normal first and second heart sounds with no gallop, rub or murmur. CHEST: Shows central trachea, equally reduced expansion, reduced air entry, vesicular sounds with crepitation mostly posteriorly on both sides. I could not appreciate any rhonchi. ABDOMEN: Distended, soft, nontender. No guarding or rigidity. No organomegaly. Hernial orifice intact. Bowel sounds normal. NEUROLOGIC: He was definitely more awake, alert, responding appropriately. Cranial nerves intact. He moves all extremities without difficulty; however, he has functional paraplegia. He is mostly bed bound, wheelchair bound. His intake over the last 24 hours was 1100, output was 4250. LABORATORY DATA: This morning showed a serum sodium 139, potassium 4.3, chloride 103, bicarbonate 27, anion gap of 9, BUN 38, creatinine was 0.9. His glucose was 127, calcium was 8.2. Total bilirubin, AST, ALT were normal. Alkaline phosphatase 137. His total protein was 6.8, albumin 2.2. His white cell count was 5800, hemoglobin 9, hematocrit 27, MCV 87 and platelet count 240,000. His urine culture has grown more than 100,000 colony forming units per mL of Pseudomonas aeruginosa. The sensitivity is still pending at the time of this dictation. His blood culture was negative. ASSESSMENT: 1. Altered mental status, likely due to narcotic overdose, resolved. I stopped his Lyrica and oxycodone. 2. Rovyl-lu-zqgovgj diastolic heart failure. 3. Thlkp-ut-tiazmvc kidney injury. 4. Chronic peripheral vascular disease, hyperlipidemia, hypertension. PLAN: My plan is to continue with IV Lasix. We will repeat his lab works to go again tomorrow and if he remains stable, we will transfer him back to [facility]. ALFA MARTINEZ MD DR: JULIA/jason JOB#: [id number] / [id number]
[2018-10-09] MEDS: MELATONIN 3 MG TABLET PO SCH (19:51)
[2018-10-09] MEDS: ACETAMINOPHEN 325 MG TABLET PO PRN (19:51)
[2018-10-09] MEDS: TAMSULOSIN 0.4 MG CAP.ER.24H. PO SCH (19:51)
[2018-10-10] MEDS: ACETAMINOPHEN 325 MG TABLET PO PRN (03:19)
[2018-10-10 05:56] VITALS: BP 130/81
[2018-10-10 06:48] LABS: CALCIUM 8.4 mg/dL (8.5-10.1); CREATININE 0.8 mg/dL (0.7-1.3); GFR 94.5; MAGNESIUM 1.8 mg/dL (1.8-2.4); POTASSIUM 3.6 mmol/L (3.5-5.1)
[2018-10-10] MEDS: INSULIN LISPRO 300 UNITS/3 ML INSULN.PEN. SQ SCH ×3 (07:39→17:00)
[2018-10-10] MEDS: DOCUSATE SODIUM 100 MG CAPSULE PO SCH ×2 (08:38→21:00)
[2018-10-10] MEDS: SERTRALINE 50 MG TABLET. PO SCH (08:40)
[2018-10-10] MEDS: FERROUS SULFATE 325 MG TABLET. PO SCH (08:40)
[2018-10-10] MEDS: CHOLECALCIFEROL (VITAMIN D3) 1,000 UNIT TABLET PO SCH (08:40)
[2018-10-10] MEDS: MULTIVITAMIN with MINERAL TABLET. PO SCH (08:40)
[2018-10-10] MEDS: CALCIUM CARB/VIT D3 500/200 TABLET PO SCH (08:40)
[2018-10-10] MEDS: METOPROLOL TART IMMED RELEASE 50 MG TABLET PO SCH ×2 (08:40→22:14)
[2018-10-10] MEDS: CLOPIDOGREL BISULFATE 75 MG TABLET PO SCH (08:41)
[2018-10-10] MEDS: EZETIMIBE 10 MG TABLET PO SCH (08:41)
[2018-10-10] MEDS: MESALAMINE 1.2 GM TABLET.DR PO SCH (08:41)
[2018-10-10] MEDS: CETIRIZINE HCL 10 MG TABLET PO SCH (08:41)
[2018-10-10] MEDS: NYSTATIN TOPICAL POWDER 15GM BOTTLE. TP SCH ×2 (08:43→22:15)
[2018-10-10] MEDS: FUROSEMIDE 40 MG/4 ML VIAL IVP SCH (08:43)
[2018-10-10] MEDS: ZINC OXIDE 20% TOPICAL OINTMENT 28GM TUBE. TP SCH ×3 (08:51→22:13)
[2018-10-10] MEDS ORDERED: OXYC5CAP PO (08:58)
[2018-10-10] MEDS ORDERED: PREG50CA PO (08:58)
[2018-10-10] MEDS: oxyCODONE IR 5 MG TABLET PO PRN ×3 (09:21→23:33)
[2018-10-10] MEDS: PREGABALIN 50 MG CAPSULE PO SCH ×2 (09:21→22:15)
--- NOTE | 2018-10-10 09:30 | PDOC ---
PROGRESS NOTES Diagnosis Problem Problems Medical Problems: (1) Altered mental status Status: Acute (2) Congestive heart failure Status: Acute (3) Hyperkalemia Status: Acute (4) Renal insufficiency Status: Acute (5) Urinary tract infection Status: Acute Assessment Problems Medical Problems: (1) Altered mental status Status: Acute (2) Congestive heart failure Status: Acute (3) Hyperkalemia Status: Acute (4) Renal insufficiency Status: Acute (5) Urinary tract infection Status: Acute IMPRESSION: 1. Acute on chronic diastolic heart failure- good diuresis, clinically in no distress. Continue medical mgmt. Record request pending. 2. Mental status changes - per PCP 3. CAD - angina free. Continue medical mgmt and RF reduction. 4. Hypertension - controlled. Continue current Rx 5. PHTN - RVSP 60 6. Chronic kidney disease - Cr normalized. monitor. 7. Chronic peripheral arterial disease - med mgmt. Outpatient follow up 8. Dyslipidemia check lipids. statin allergy. 9. atrial fibrillation - rate controlled. INR 3.2, warfarin as per PCP/Pharm. Records requested and pending. Subjective confused this am. answers with "I dont know yet" to all questions. Complains of incontinence otherwise no complaints. Objective tele - no significant arrhythmias Vital Signs Date Time Temp Pulse Resp B/P (MAP) Pulse Ox O2 Delivery O2 Flow Rate FiO2 10/10/18 09:21 99 Nasal Cannula 2.0 10/10/18 08:40 93 130/81 10/10/18 05:56 98.2 22 Intake and Output 10/10/18 07:00 Intake Total 410 ml Output Total 5600 ml Balance -5190 ml Intake Oral 360 ml IV Total 50 ml Output Urine Total 5600 ml # Voids 1 # Bowel Movements 2 Abdomen: Normal bowel sounds, Soft Heart: Normal S1, Normal S2, Other (no gallops, clicks or rubs) Extremities: Other (chronic venous stasis changes) General: Alert, Cooperative, No acute distress HEENT: Atraumatic, EOMI, Mucous membr. moist/pink Lungs: Other (decreased bases bilaterally) Neuro: Normal speech Psych/Mental Status: Mood NL Review of Relevant I have reviewed the following items rafaela (where applicable) has been applied. Labs Laboratory Tests Test 10/08/18 11:36 10/08/18 16:53 10/08/18 20:10 10/09/18 06:03 Glucose (Fingerstick) 181 mg/dL (70-99) 156 mg/dL (70-99) 157 mg/dL (70-99) White Blood Count 5.8 x10^3/uL (4.0-11.0) Red Blood Count 3.18 x10^6/uL (4.30-5.70) Hemoglobin 8.7 g/dL (13.0-17.5) Hematocrit 27.5 % (39.0-53.0) Mean Corpuscular Volume 87 fL (79-100) Mean Corpuscular Hemoglobin 27 pg (25-35) Mean Corpuscular Hemoglobin Concent 32 g/dL (31-37) Red Cell Distribution Width 20.0 % (11.5-14.5) Platelet Count 240 x10^3/uL (140-400) Erythrocyte Sedimentation Rate 78 (0-15) Prothrombin Time 24.3 SEC (9.4-11.4) Prothromb Time International Ratio 2.5 (0.9-1.1) Sodium Level 139 mmol/L (136-145) Potassium Level 4.3 mmol/L (3.5-5.1) Chloride Level 103 mmol/L (98-107) Carbon Dioxide Level 27 mmol/L (21-32) Anion Gap 9 (6-14) Blood Urea Nitrogen 38 mg/dL (8-26) Creatinine 0.9 mg/dL (0.7-1.3) Estimated GFR (Cockcroft-Gault) 82.5 BUN/Creatinine Ratio 42 (6-20) Glucose Level 127 mg/dL (70-99) Calcium Level 8.2 mg/dL (8.5-10.1) Total Bilirubin 0.4 mg/dL (0.2-1.0) Aspartate Amino Transf (AST/SGOT) 28 U/L (15-37) Alanine Aminotransferase (ALT/SGPT) 51 U/L (16-63) Alkaline Phosphatase 137 U/L (46-116) C-Reactive Protein 61.8 mg/L (0-3.3) Total Protein 6.8 g/dL (6.4-8.2) Albumin 2.2 g/dL (3.4-5.0) Albumin/Globulin Ratio 0.5 (1.0-1.7) Test 10/09/18 07:39 10/09/18 21:47 10/10/18 06:24 10/10/18 07:30 Glucose (Fingerstick) 130 mg/dL (70-99) 128 mg/dL (70-99) 132 mg/dL (70-99) Prothrombin Time 30.2 SEC (9.4-11.4) Prothromb Time International Ratio 3.2 (0.9-1.1) Sodium Level 140 mmol/L (136-145) Potassium Level 3.6 mmol/L (3.5-5.1) Chloride Level 102 mmol/L (98-107) Carbon Dioxide Level 29 mmol/L (21-32) Anion Gap 9 (6-14) Blood Urea Nitrogen 28 mg/dL (8-26) Creatinine 0.8 mg/dL (0.7-1.3) Estimated GFR (Cockcroft-Gault) 94.5 Glucose Level 130 mg/dL (70-99) Calcium Level 8.4 mg/dL (8.5-10.1) Magnesium Level 1.8 mg/dL (1.8-2.4) Microbiology 10/07/18 Blood Culture - Preliminary, Resulted NO GROWTH AFTER 3 DAYS... 10/07/18 Urine Culture - Preliminary, Resulted 10/07/18 Urine Culture Result 1 (IRASEMA) - Preliminary, Resulted Medications Current Medications Ceftriaxone Sodium 1 gm/ Sodium Chloride 50 ml @ 100 mls/hr 1X ONCE IV Last administered on 10/07/18at 09:20; Start 10/07/18 at 08:45; Stop 10/07/18 at 09 :14; Status DC Lactulose (Lactulose) 30 gm 1X ONCE PO Last administered on 10/07/18at 09:20; Start 10/07/18 at 08:45; Stop 10/07/18 at 08:50; Status DC Sodium Polystyrene Sulfonate (Kayexalate) 15 gm 1X ONCE PO Last administered on 10/07/18at 09:21; Start 10/07/18 at 08:45; Stop 10/07/18 at 08:50; Status DC Ondansetron HCl (Zofran) 4 mg PRN Q4HRS PRN IV NAUSEA/VOMITING; Start at 08:45; Stop 10/08/18 at 08:44; Status DC Sodium Chloride 1,000 ml @ 125 mls/hr Q8H IV Last administered on 10/07/18at 09:19; Start 10/07/18 at 09:00; Stop 10/08/18 at 08:59; Status DC Acetaminophen (Tylenol) 650 mg PRN Q4HRS PRN PO FEVER; Start 10/07/18 at 08:45 ; Stop 10/08/18 at 08:44; Status DC Sodium Chloride 50 ml @ As Directed STK-MED ONCE .ROUTE ; Start 10/07/18 at 09: 12; Stop 10/07/18 at 09:13; Status DC Ceftriaxone Sodium (Rocephin) 1 gm STK-MED ONCE IV ; Start 10/07/18 at 09:12; Stop 10/07/18 at 09:13; Status DC Insulin Human Lispro (HumaLOG) 0-7 UNITS TIDWMEALS SQ Last administered on at 17:28; Start 10/07/18 at 17:00 Dextrose 12.5 gm PRN Q15MIN PRN IV SEE COMMENTS; Start 10/07/18 at 12:15 Naloxone HCl (Narcan) 0.4 mg PRN Q2MIN PRN IV SEE COMMENTS Last administered on 10/07/18at 15:20; Start 10/07/18 at 15:00 Levetiracetam 1000 mg/Sodium Chloride 100 ml @ 400 mls/hr Q12HR IV Last administered on 10/07/18at 15:00; Start 10/07/18 at 15:00; Stop 10/07/18 at 16 :45; Status DC Furosemide (Lasix) 40 mg 1X ONCE IVP Last administered on 10/07/18at 16:50; Start 10/07/18 at 16:45; Stop 10/07/18 at 16:46; Status DC Levetiracetam 500 mg/Sodium Chloride 100 ml @ 400 mls/hr Q12HR IV ; Start at 21:00; Stop 10/07/18 at 21:00; Status DC Levetiracetam 500 mg/Sodium Chloride 105 ml @ 400 mls/hr Q12HR IV Last administered on 10/09/18at 08:36; Start 10/07/18 at 21:00; Stop 10/09/18 at 14 :17; Status DC Calcium/Vitamin D (Oscal D 500mg/ 200uts) 1 tab DAILY PO Last administered on 10/10/18 08:40; Start 10/09/18 at 09:00 Clopidogrel Bisulfate (Plavix) 75 mg DAILY PO Last administered on 10/10/18 08:41; Start 10/09/18 at 09:00 Ferrous Sulfate (Feosol) 325 mg DAILY PO Last administered on 10/10/18 08:40 ; Start 10/09/18 at 09:00 Mesalamine (Lialda) 1.2 gm DAILY PO Last administered on 10/10/18 08:41; Start 10/08/18 at 10:00 Sertraline HCl (Zoloft) 50 mg DAILY PO Last administered on 10/10/18 08:40; Start 10/08/18 at 10:00 Tamsulosin HCl (Flomax) 0.4 mg QHS PO Last administered on 10/09/18 19:51; Start 10/08/18 at 21:00 Zinc Oxide (Zinc Oxide 20% Topical) 1 cesar TID TP Last administered on 08:51; Start 10/08/18 at 14:00 Acetaminophen (Tylenol) 650 mg PRN QID PRN PO PAIN / TEMP Last administered on 10/10/18 03:19; Start 10/08/18 at 10:00 Non-Formulary Medication (Albuterol Sulfate (Albuterol Sulfate Conc Neb Soln)) 1 vial PRN QID PRN NEB .; Start 10/08/18 at 09:45; Stop 10/08/18 at 10:37; Status DC Cetirizine HCl (ZyrTEC) 10 mg DAILY PO Last administered on 10/10/18 08:41; Start 10/08/18 at 10:00 Vitamin D (Vitamin D3) 2,000 unit DAILY PO Last administered on 10/10/18 08: 40; Start 10/08/18 at 10:00 Docusate Sodium (Colace) 100 mg BID PO Last administered on 10/09/18 19:47; Start 10/08/18 at 10:00 EZETIMIBE (Zetia) 5 mg DAILY PO Last administered on 10/10/18 08:41; Start 10/08/18 at 10:00 Loperamide HCl (Imodium) 2 mg PRN BID PRN PO DIARRHEA; Start 10/08/18 at 10:00 Melatonin 3 mg QHS PO Last administered on 10/09/18 19:51; Start 10/08/18 at 21:00 Metoprolol Tartrate (Lopressor) 100 mg BID PO Last administered on 10/10/18at 08:40; Start 10/08/18 at 10:00 Multivitamins/ Calcium (Thera-M Plus) 1 tab DAILY PO Last administered on 10/10at 08:40; Start 10/08/18 at 10:00 Non-Formulary Medication (Warfarin Sodium (Coumadin)) 1 tab QTU PO ; Start at 16:00; Stop 10/11/18 at 16:00; Status DC Non-Formulary Medication (Warfarin Sodium (Coumadin)) 1 tab QMWF PO ; Start at 16:00; Stop 10/10/18 at 16:00; Status DC Ceftriaxone Sodium 1 gm/ Sodium Chloride 50 ml @ 100 mls/hr Q24H IV Last administered on 10/10/18at 09:21; Start 10/08/18 at 10:00 Albuterol Sulfate (Ventolin) 2.5 mg PRN Q6HRS PRN NEB SHORTNESS OF BREATH; Start 10/08/18 at 10:45 Warfarin Sodium (Coumadin Per Pharmacy) 1 each PRN DAILY PRN MC SEE COMMENTS Last administered on 10/09/18at 08:18; Start 10/08/18 at 12:45 Warfarin Sodium (Coumadin) 5 mg 1X WARF ONCE PO Last administered on at 16:01; Start 10/08/18 at 16:00; Stop 10/08/18 at 16:01; Status DC Sodium Chloride (Saline Mist Nasal) 1 cesar PRN Q1HR PRN NS NASAL CONGESTION Last administered on 10/08/18 13:24; Start 10/08/18 at 13:15 Nystatin (Nystop) 1 cesar BID TP Last administered on 10/10/18 08:43; Start at 21:00 Furosemide (Lasix) 40 mg BID92 IVP Last administered on 10/10/18at 08:43; Start 10/09/18 at 09:00 Furosemide (Lasix) 40 mg 1X ONCE IVP Last administered on 10/08/18at 15:44; Start 10/08/18 at 15:15; Stop 10/08/18 at 15:16; Status DC Warfarin Sodium (Coumadin) 3 mg 1X WARF ONCE PO Last administered on at 16:21; Start 10/09/18 at 16:00; Stop 10/09/18 at 16:01; Status DC Oxycodone HCl (Roxicodone) 5 mg Q6HRS PRN PO PAIN Last administered on at 09:21; Start 10/10/18 at 09:00 Pregabalin (Lyrica) 50 mg BID PO Last administered on 10/10/18at 09:21; Start 10/10/18 at 09:00 Active Scripts Active Reported Lyrica (Pregabalin) 50 Mg Capsule 1 Cap PO BID Oxycodone Hcl 5 Mg Capsule 5 Mg PO PRN Q6HRS PRN Zinc Oxide 56.7 Gm Oint...g. 56.7 Gm TP TID Coumadin (Warfarin Sodium) 3 Mg Tablet 1 Tab PO QMWF Coumadin (Warfarin Sodium) 2 Mg Tablet 1 Tab PO QTU Trazodone Hcl 50 Mg Tablet 1 Tab PO QHS Tamsulosin Hcl 0.4 Mg Cap.er.24h 0.4 Mg PO QHS Lyrica (Pregabalin) 150 Mg Capsule 1 Cap PO TID Oxycodone Hcl 10 Mg Tablet 1 Tab PO PRN Q4HRS PRN Multivitamins (Multivitamin) 1 Each Tablet 1 Tab PO DAILY Metoprolol Tartrate 100 Mg Tablet 1 Tab PO BID Lialda (Mesalamine) 1.2 Gm Tablet.dr 1.2 Gm PO DAILY Melatonin 3 Mg Tablet 1 Tab PO QHS Ferrous Sulfate 325 Mg Tablet 1 Tab PO DAILY Ezetimibe 10 Mg Tablet 5 Mg PO DAILY Clopidogrel (Clopidogrel Bisulfate) 75 Mg Tablet 1 Tab PO DAILY D3-2000 (Cholecalciferol (Vitamin D3)) 2,000 Unit Capsule 2,000 Unit PO DAILY Cetirizine Hcl 10 Mg Tablet 1 Tab PO DAILY Albuterol Sulfate Conc Neb Soln (Albuterol Sulfate) 2.5 Mg/0.5 Ml Vial.neb 1 Vial NEB PRN QID PRN Acetaminophen 500 Mg Tablet 650 Mg PO PRN QID PRN Imodium A-D (Loperamide HCl) 2 Mg Capsule 2 Mg PO PRN BID PRN Colace (Docusate Sodium) 100 Mg Capsule 1 Cap PO BID Calcium 500 + Vit D 200 Tablet (Calcium Carbonate/Vitamin D3) 1 Each Tablet 1 Each PO DAILY Sertraline Hcl 50 Mg Tablet 50 Mg PO DAILY Sertraline Hcl 25 Mg Tablet 25 Mg PO DAILY Vitals/I & O Vital Sign - Last 24 Hours 10/09/18 10/09/18 10/09/18 10/09/18 12:16 13:48 19:30 19:51 Temp 97.8 Pulse 71 71 88 105 Resp 20 B/P (MAP) 125/71 (89) 151/62 (91) 125/71 Pulse Ox 95 96 O2 Delivery Nasal Cannula Nasal Cannula O2 Flow Rate 2.5 2.5 10/09/18 10/09/18 10/10/18 10/10/18 20:00 23:04 04:02 05:56 Temp 97.9 98.2 Pulse 89 73 93 Resp 20 22 B/P (MAP) 120/70 (87) 130/81 (97) Pulse Ox 94 99 O2 Delivery Nasal Cannula Nasal Cannula Nasal Cannula O2 Flow Rate 2.0 2.5 2.0 10/10/18 10/10/18 08:40 09:21 Pulse 93 B/P (MAP) 130/81 Pulse Ox 99 O2 Delivery Nasal Cannula O2 Flow Rate 2.0 Intake and Output 10/09/18 10/09/18 10/10/18 15:00 23:00 07:00 Intake Total 50 ml 360 ml Output Total 2600 ml 2400 ml 600 ml Balance -2550 ml -2400 ml -240 ml SENA ROSE APRN Oct 10, 2018 09:30
[2018-10-10 11:28] VITALS: BP 153/79
[2018-10-10 14:35] VITALS: BP 114/76
[2018-10-10] MEDS ORDERED: NON FORMULARY ITEM (Warfarin Sodium (Coumadin) 1 TAB) PO SCH (16:00)
[2018-10-10 19:29] VITALS: BP 124/76
[2018-10-10] MEDS: CIPROFLOXACIN HCL 500 MG TABLET PO SCH (22:14)
[2018-10-10] MEDS: FUROSEMIDE 40 MG TABLET PO SCH (22:15)
[2018-10-10] MEDS: TAMSULOSIN 0.4 MG CAP.ER.24H. PO SCH (22:15)
[2018-10-10] MEDS: MELATONIN 3 MG TABLET PO SCH (22:15)
[2018-10-10 22:49] VITALS: BP 126/84
[2018-10-11 05:29] VITALS: BP 122/80
[2018-10-11 06:41] LABS: CALCIUM 7.9 mg/dL (8.5-10.1); CREATININE 0.8 mg/dL (0.7-1.3); GFR 94.5; POTASSIUM 3.4 mmol/L (3.5-5.1)
[2018-10-11 06:49] LABS: HEMATOCRIT 28.3 % (39.0-53.0); HEMOGLOBIN 8.8 g/dL (13.0-17.5); RED BLOOD COUNT 3.29 x10^6/uL (4.30-5.70); RED CELL DISTRIBUTION WIDTH 19.8 % (11.5-14.5); WHITE BLOOD COUNT 7.5 x10^3/uL (4.0-11.0)
[2018-10-11] MEDS: INSULIN LISPRO 300 UNITS/3 ML INSULN.PEN. SQ SCH ×3 (08:00→17:26)
[2018-10-11] MEDS: MESALAMINE 1.2 GM TABLET.DR PO SCH (08:48)
[2018-10-11] MEDS: SERTRALINE 50 MG TABLET. PO SCH (08:49)
[2018-10-11] MEDS: MULTIVITAMIN with MINERAL TABLET. PO SCH (08:49)
[2018-10-11] MEDS: CIPROFLOXACIN HCL 500 MG TABLET PO SCH ×2 (08:49→21:47)
[2018-10-11] MEDS: CLOPIDOGREL BISULFATE 75 MG TABLET PO SCH (08:50)
[2018-10-11] MEDS: METOPROLOL TART IMMED RELEASE 50 MG TABLET PO SCH ×2 (08:50→21:46)
[2018-10-11] MEDS: CETIRIZINE HCL 10 MG TABLET PO SCH (08:50)
[2018-10-11] MEDS: EZETIMIBE 10 MG TABLET PO SCH (08:50)
[2018-10-11] MEDS: FUROSEMIDE 40 MG TABLET PO SCH ×2 (08:50→21:45)
[2018-10-11] MEDS: FERROUS SULFATE 325 MG TABLET. PO SCH (08:51)
[2018-10-11] MEDS: CALCIUM CARB/VIT D3 500/200 TABLET PO SCH (08:51)
[2018-10-11] MEDS: CHOLECALCIFEROL (VITAMIN D3) 1,000 UNIT TABLET PO SCH (08:51)
[2018-10-11] MEDS: PREGABALIN 50 MG CAPSULE PO SCH ×2 (08:51→21:47)
[2018-10-11] MEDS: DOCUSATE SODIUM 100 MG CAPSULE PO SCH ×2 (08:53→21:46)
[2018-10-11 08:55] VITALS: BP 127/73
[2018-10-11] MEDS: oxyCODONE IR 5 MG TABLET PO PRN ×3 (08:57→21:47)
[2018-10-11] MEDS: NYSTATIN TOPICAL POWDER 15GM BOTTLE. TP SCH ×2 (09:01→21:48)
[2018-10-11] MEDS: ZINC OXIDE 20% TOPICAL OINTMENT 28GM TUBE. TP SCH ×3 (09:01→21:48)
--- NOTE | 2018-10-11 09:45 | PN ---
DATE: 10/10/2018 SUBJECTIVE: The patient denies any new medical or neurological complaints, ____ depressed. OBJECTIVE: GENERAL: Obese male, not in acute distress. VITAL SIGNS: Blood pressure is 130/81, respiratory rate 22, pulse is 83 and regular, temperature 98.1, oxygen saturation is 99% on 2 liters by nasal cannula. HEENT: Normocephalic, atraumatic, otherwise unremarkable. NECK: Supple. Negative for carotid bruit, lymphadenopathy, or thyromegaly. LUNGS: Clear to A and P. CARDIOVASCULAR: Normal S1 and S2. There is rhythm. ABDOMEN: Soft. Bowel sounds positive. EXTREMITIES: Negative for cyanosis, clubbing, or pitting edema. NEUROLOGICAL EXAM: Mental Status: The patient is alert and oriented x 2. Speech is fluent. There is no language dysfunction. Memory, judgment, and abstract thinking are fair. The patient denies hallucination or delusion. Cranial Nerves: Visual link are full. The pupils are reactive to light and accommodation. The extraocular movements are intact. There is no nystagmus. There are no facial motor or sensory deficits. Cranial nerves are intact. Motor Examination: No focal muscle bulk was seen. The tone is normal. The strength is 4/5 in the left upper extremity. The motor revealed ____ 3/5 throughout the lower extremities. Sensory examination revealed diminished pinprick and light touch senses all over the upper and lower extremities. Deep tendon reflexes are symmetric and hypoactive with absent Achilles responses. Gait not tested. IMPRESSION: 1. Acute encephalopathy, probably due to overdose of medications. 2. Urinary tract infections. 3. Multiple heart problems include history of coronary artery disease, status post stent procedure x 2, hypertension, hyperlipidemia, peripheral vascular disease and peripheral neuropathy probably secondary to diabetes mellitus, atrial fibrillation with history of pulmonary embolism and deep venous thrombosis. RECOMMENDATION: 1. Continue with current medical treatment care. 2. Follow up with Cardiology at [facility]. M Jewels JEAN-BAPTISTE MD DR: JEM/jason JOB#: [id number] / [id number]
--- NOTE | 2018-10-11 09:53 | PDOC ---
SENA ROSE SCREEN WRITER 10/11/18 0953: PROGRESS NOTES Diagnosis Problem Problems Medical Problems: (1) Altered mental status Status: Acute (2) Congestive heart failure Status: Acute (3) Hyperkalemia Status: Acute (4) Renal insufficiency Status: Acute (5) Urinary tract infection Status: Acute Assessment Problems Medical Problems: (1) Altered mental status Status: Acute (2) Congestive heart failure Status: Acute (3) Hyperkalemia Status: Acute (4) Renal insufficiency Status: Acute (5) Urinary tract infection Status: Acute 1. Acute on chronic diastolic heart failure- good diuresis, improved and clinically in no distress. Continue medical mgmt. 08/01/18 EF 60-65% 09/01 normal LV function, Mod but mild by doppler. 2. Mental status changes - resolved. 3. CAD - angina free. Continue medical mgmt and RF reduction. Plans for cath and PCI to RCA and OM3 at [facility] 4. Hypertension - controlled. Continue current Rx 5. PHTN - RVSP 60. recent echo at with PAS 31 mmHg 6. Chronic kidney disease - Cr normalized. monitor. 7. Chronic peripheral arterial disease - med mgmt. Outpatient follow up 8. Dyslipidemia check lipids. statin allergy. 08/03/18 LDL 52, HDL28, Tgs 137 9. atrial fibrillation - rate controlled. INR 3.2 on 10/10. warfarin as per PCP/Pharm. 10. anemia - recent GIB, resuming plavix and warfarin was ok'd by GI. Monitor. Records indicate severe and plans to refer for TAVR, PCI/stents x 2 to proximal LAD with planned staged PCI to RCA and OM3, poor surgical candidate at time of LAD stenting due to severe PHTN and infection. Later echo indicates mild . Consider SO, request cath films for review. Subjective c/o back and shoulder pain as well as headache. no dyspnea, no chest pain. Objective Vital Signs Date Time Temp Pulse Resp B/P (MAP) Pulse Ox O2 Delivery O2 Flow Rate FiO2 10/11/18 08:55 98.4 20 127/73 (91) 97 10/11/18 08:50 91 10/11/18 05:29 Nasal Cannula 2.0 Intake and Output 10/11/18 07:00 Intake Total 1390 ml Output Total 2954 ml Balance -1564 ml Intake Oral 1340 ml IV Total 50 ml Output Urine Total 2954 ml # Bowel Movements 2 Abdomen: Normal bowel sounds, Soft, No tenderness Heart: Normal S1, Normal S2, Other (no significant murmurs, no gallops, clicks or rubs) Extremities: Other (+chronic edema and venous stasis changes) General: Alert, Oriented X3, Cooperative, No acute distress HEENT: Atraumatic, EOMI, Mucous membr. moist/pink Lungs: Other (decreased bases with poor inspratory effort, otherwise clear) Neuro: Normal speech Psych/Mental Status: Mental status NL, Mood NL Review of Relevant I have reviewed the following items rafaela (where applicable) has been applied. Labs Laboratory Tests Test 10/09/18 21:47 10/10/18 06:24 10/10/18 07:30 10/10/18 11:51 Glucose (Fingerstick) 128 mg/dL (70-99) 132 mg/dL (70-99) 129 mg/dL (70-99) Prothrombin Time 30.2 SEC (9.4-11.4) Prothromb Time International Ratio 3.2 (0.9-1.1) Sodium Level 140 mmol/L (136-145) Potassium Level 3.6 mmol/L (3.5-5.1) Chloride Level 102 mmol/L (98-107) Carbon Dioxide Level 29 mmol/L (21-32) Anion Gap 9 (6-14) Blood Urea Nitrogen 28 mg/dL (8-26) Creatinine 0.8 mg/dL (0.7-1.3) Estimated GFR (Cockcroft-Gault) 94.5 Glucose Level 130 mg/dL (70-99) Calcium Level 8.4 mg/dL (8.5-10.1) Magnesium Level 1.8 mg/dL (1.8-2.4) Test 10/10/18 16:41 10/10/18 21:48 10/11/18 05:55 10/11/18 08:29 Glucose (Fingerstick) 167 mg/dL (70-99) 166 mg/dL (70-99) 145 mg/dL (70-99) White Blood Count 7.5 x10^3/uL (4.0-11.0) Red Blood Count 3.29 x10^6/uL (4.30-5.70) Hemoglobin 8.8 g/dL (13.0-17.5) Hematocrit 28.3 % (39.0-53.0) Mean Corpuscular Volume 86 fL (79-100) Mean Corpuscular Hemoglobin 27 pg (25-35) Mean Corpuscular Hemoglobin Concent 31 g/dL (31-37) Red Cell Distribution Width 19.8 % (11.5-14.5) Platelet Count 256 x10^3/uL (140-400) Sodium Level 139 mmol/L (136-145) Potassium Level 3.4 mmol/L (3.5-5.1) Chloride Level 100 mmol/L (98-107) Carbon Dioxide Level 32 mmol/L (21-32) Anion Gap 7 (6-14) Blood Urea Nitrogen 19 mg/dL (8-26) Creatinine 0.8 mg/dL (0.7-1.3) Estimated GFR (Cockcroft-Gault) 94.5 Glucose Level 140 mg/dL (70-99) Calcium Level 7.9 mg/dL (8.5-10.1) Microbiology 10/07/18 Blood Culture - Preliminary, Resulted NO GROWTH AFTER 4 DAYS... 10/07/18 Urine Culture - Final, Complete 10/07/18 Urine Culture Result 1 (IRASEMA) - Final, Complete 10/07/18 Antimicrobic Susceptibility - Final, Complete Medications Current Medications Ceftriaxone Sodium 1 gm/ Sodium Chloride 50 ml @ 100 mls/hr 1X ONCE IV Last administered on 10/07/18at 09:20; Start 10/07/18 at 08:45; Stop 10/07/18 at 09 :14; Status DC Lactulose (Lactulose) 30 gm 1X ONCE PO Last administered on 10/07/18at 09:20; Start 10/07/18 at 08:45; Stop 10/07/18 at 08:50; Status DC Sodium Polystyrene Sulfonate (Kayexalate) 15 gm 1X ONCE PO Last administered on 10/07/18at 09:21; Start 10/07/18 at 08:45; Stop 10/07/18 at 08:50; Status DC Ondansetron HCl (Zofran) 4 mg PRN Q4HRS PRN IV NAUSEA/VOMITING; Start at 08:45; Stop 10/08/18 at 08:44; Status DC Sodium Chloride 1,000 ml @ 125 mls/hr Q8H IV Last administered on 10/07/18at 09:19; Start 10/07/18 at 09:00; Stop 10/08/18 at 08:59; Status DC Acetaminophen (Tylenol) 650 mg PRN Q4HRS PRN PO FEVER; Start 10/07/18 at 08:45 ; Stop 10/08/18 at 08:44; Status DC Sodium Chloride 50 ml @ As Directed STK-MED ONCE .ROUTE ; Start 10/07/18 at 09: 12; Stop 10/07/18 at 09:13; Status DC Ceftriaxone Sodium (Rocephin) 1 gm STK-MED ONCE IV ; Start 10/07/18 at 09:12; Stop 10/07/18 at 09:13; Status DC Insulin Human Lispro (HumaLOG) 0-7 UNITS TIDWMEALS SQ Last administered on at 17:28; Start 10/07/18 at 17:00 Dextrose 12.5 gm PRN Q15MIN PRN IV SEE COMMENTS; Start 10/07/18 at 12:15 Naloxone HCl (Narcan) 0.4 mg PRN Q2MIN PRN IV SEE COMMENTS Last administered on 10/07/18at 15:20; Start 10/07/18 at 15:00 Levetiracetam 1000 mg/Sodium Chloride 100 ml @ 400 mls/hr Q12HR IV Last administered on 10/07/18at 15:00; Start 10/07/18 at 15:00; Stop 10/07/18 at 16 :45; Status DC Furosemide (Lasix) 40 mg 1X ONCE IVP Last administered on 10/07/18at 16:50; Start 10/07/18 at 16:45; Stop 10/07/18 at 16:46; Status DC Levetiracetam 500 mg/Sodium Chloride 100 ml @ 400 mls/hr Q12HR IV ; Start at 21:00; Stop 10/07/18 at 21:00; Status DC Levetiracetam 500 mg/Sodium Chloride 105 ml @ 400 mls/hr Q12HR IV Last administered on 10/09/18at 08:36; Start 10/07/18 at 21:00; Stop 10/09/18 at 14 :17; Status DC Calcium/Vitamin D (Oscal D 500mg/ 200uts) 1 tab DAILY PO Last administered on 10/11/18 08:51; Start 10/09/18 at 09:00 Clopidogrel Bisulfate (Plavix) 75 mg DAILY PO Last administered on 10/11/18 08:50; Start 10/09/18 at 09:00 Ferrous Sulfate (Feosol) 325 mg DAILY PO Last administered on 10/11/18 08:51 ; Start 10/09/18 at 09:00 Mesalamine (Lialda) 1.2 gm DAILY PO Last administered on 10/11/18 08:48; Start 10/08/18 at 10:00 Sertraline HCl (Zoloft) 50 mg DAILY PO Last administered on 10/11/18 08:49; Start 10/08/18 at 10:00 Tamsulosin HCl (Flomax) 0.4 mg QHS PO Last administered on 10/10/18 22:15; Start 10/08/18 at 21:00 Zinc Oxide (Zinc Oxide 20% Topical) 1 cesar TID TP Last administered on 09:01; Start 10/08/18 at 14:00 Acetaminophen (Tylenol) 650 mg PRN QID PRN PO PAIN / TEMP Last administered on 10/10/18 03:19; Start 10/08/18 at 10:00 Non-Formulary Medication (Albuterol Sulfate (Albuterol Sulfate Conc Neb Soln)) 1 vial PRN QID PRN NEB .; Start 10/08/18 at 09:45; Stop 10/08/18 at 10:37; Status DC Cetirizine HCl (ZyrTEC) 10 mg DAILY PO Last administered on 10/11/18 08:50; Start 10/08/18 at 10:00 Vitamin D (Vitamin D3) 2,000 unit DAILY PO Last administered on 10/11/18 08: 51; Start 10/08/18 at 10:00 Docusate Sodium (Colace) 100 mg BID PO Last administered on 10/09/18 19:47; Start 10/08/18 at 10:00 EZETIMIBE (Zetia) 5 mg DAILY PO Last administered on 10/11/18 08:50; Start 10/08/18 at 10:00 Loperamide HCl (Imodium) 2 mg PRN BID PRN PO DIARRHEA; Start 10/08/18 at 10:00 Melatonin 3 mg QHS PO Last administered on 10/10/18at 22:15; Start 10/08/18 at 21:00 Metoprolol Tartrate (Lopressor) 100 mg BID PO Last administered on 10/11/18at 08:50; Start 10/08/18 at 10:00 Multivitamins/ Calcium (Thera-M Plus) 1 tab DAILY PO Last administered on 10/11at 08:49; Start 10/08/18 at 10:00 Non-Formulary Medication (Warfarin Sodium (Coumadin)) 1 tab QTU PO ; Start at 16:00; Stop 10/11/18 at 16:00; Status DC Non-Formulary Medication (Warfarin Sodium (Coumadin)) 1 tab QMWF PO ; Start at 16:00; Stop 10/10/18 at 16:00; Status DC Ceftriaxone Sodium 1 gm/ Sodium Chloride 50 ml @ 100 mls/hr Q24H IV Last administered on 10/10/18at 09:21; Start 10/08/18 at 10:00; Stop 10/10/18 at 14 :55; Status DC Albuterol Sulfate (Ventolin) 2.5 mg PRN Q6HRS PRN NEB SHORTNESS OF BREATH; Start 10/08/18 at 10:45 Warfarin Sodium (Coumadin Per Pharmacy) 1 each PRN DAILY PRN MC SEE COMMENTS Last administered on 10/09/18at 08:18; Start 10/08/18 at 12:45 Warfarin Sodium (Coumadin) 5 mg 1X WARF ONCE PO Last administered on at 16:01; Start 10/08/18 at 16:00; Stop 10/08/18 at 16:01; Status DC Sodium Chloride (Saline Mist Nasal) 1 cesar PRN Q1HR PRN NS NASAL CONGESTION Last administered on 10/08/18at 13:24; Start 10/08/18 at 13:15 Nystatin (Nystop) 1 cesar BID TP Last administered on 10/11/18at 09:01; Start at 21:00 Furosemide (Lasix) 40 mg BID92 IVP Last administered on 10/10/18at 08:43; Start 10/09/18 at 09:00; Stop 10/10/18 at 14:55; Status DC Furosemide (Lasix) 40 mg 1X ONCE IVP Last administered on 10/08/18at 15:44; Start 10/08/18 at 15:15; Stop 10/08/18 at 15:16; Status DC Warfarin Sodium (Coumadin) 3 mg 1X WARF ONCE PO Last administered on at 16:21; Start 10/09/18 at 16:00; Stop 10/09/18 at 16:01; Status DC Oxycodone HCl (Roxicodone) 5 mg Q6HRS PRN PO PAIN Last administered on at 08:57; Start 10/10/18 at 09:00 Pregabalin (Lyrica) 50 mg BID PO Last administered on 10/11/18at 08:51; Start 10/10/18 at 09:00 Ciprofloxacin (Cipro) 500 mg BID PO Last administered on 10/11/18at 08:49; Start 10/10/18 at 21:00 Furosemide (Lasix) 40 mg BID PO Last administered on 10/11/18at 08:50; Start 10/10/18 at 21:00 Warfarin Sodium (Coumadin - No Dose Today) 1 each 1X WARF ONCE MC ; Start at 16:00; Stop 10/11/18 at 16:01 Active Scripts Active Reported Lyrica (Pregabalin) 50 Mg Capsule 1 Cap PO BID Oxycodone Hcl 5 Mg Capsule 5 Mg PO PRN Q6HRS PRN Zinc Oxide 56.7 Gm Oint...g. 56.7 Gm TP TID Coumadin (Warfarin Sodium) 3 Mg Tablet 1 Tab PO QMWF Coumadin (Warfarin Sodium) 2 Mg Tablet 1 Tab PO QTU Trazodone Hcl 50 Mg Tablet 1 Tab PO QHS Tamsulosin Hcl 0.4 Mg Cap.er.24h 0.4 Mg PO QHS Lyrica (Pregabalin) 150 Mg Capsule 1 Cap PO TID Oxycodone Hcl 10 Mg Tablet 1 Tab PO PRN Q4HRS PRN Multivitamins (Multivitamin) 1 Each Tablet 1 Tab PO DAILY Metoprolol Tartrate 100 Mg Tablet 1 Tab PO BID Lialda (Mesalamine) 1.2 Gm Tablet.dr 1.2 Gm PO DAILY Melatonin 3 Mg Tablet 1 Tab PO QHS Ferrous Sulfate 325 Mg Tablet 1 Tab PO DAILY Ezetimibe 10 Mg Tablet 5 Mg PO DAILY Clopidogrel (Clopidogrel Bisulfate) 75 Mg Tablet 1 Tab PO DAILY D3-2000 (Cholecalciferol (Vitamin D3)) 2,000 Unit Capsule 2,000 Unit PO DAILY Cetirizine Hcl 10 Mg Tablet 1 Tab PO DAILY Albuterol Sulfate Conc Neb Soln (Albuterol Sulfate) 2.5 Mg/0.5 Ml Vial.neb 1 Vial NEB PRN QID PRN Acetaminophen 500 Mg Tablet 650 Mg PO PRN QID PRN Imodium A-D (Loperamide HCl) 2 Mg Capsule 2 Mg PO PRN BID PRN Colace (Docusate Sodium) 100 Mg Capsule 1 Cap PO BID Calcium 500 + Vit D 200 Tablet (Calcium Carbonate/Vitamin D3) 1 Each Tablet 1 Each PO DAILY Sertraline Hcl 50 Mg Tablet 50 Mg PO DAILY Sertraline Hcl 25 Mg Tablet 25 Mg PO DAILY Vitals/I & O Vital Sign - Last 24 Hours 10/10/18 10/10/18 10/10/18 10/10/18 11:28 14:35 15:44 16:44 Temp 97.8 98.4 Pulse 60 85 Resp 20 20 B/P (MAP) 153/79 (103) 114/76 (89) Pulse Ox 97 97 97 97 O2 Delivery Room Air Room Air Nasal Cannula O2 Flow Rate 2.0 10/10/18 10/10/18 10/10/18 10/10/18 19:29 20:00 22:14 22:49 Temp 98.8 98.3 Pulse 81 94 94 Resp 18 20 B/P (MAP) 124/76 (92) 126/84 126/84 (98) Pulse Ox 95 96 O2 Delivery Nasal Cannula Nasal Cannula Nasal Cannula O2 Flow Rate 2.0 2.0 2.0 10/10/18 10/11/18 10/11/18 10/11/18 23:33 01:00 05:29 08:50 Temp 98.7 Pulse 91 91 Resp 14 20 B/P (MAP) 122/80 (94) 122/80 Pulse Ox 96 O2 Delivery Nasal Cannula Nasal Cannula Nasal Cannula O2 Flow Rate 2.0 2.0 2.0 10/11/18 08:55 Temp 98.4 Resp 20 B/P (MAP) 127/73 (91) Pulse Ox 97 Intake and Output 10/10/18 10/10/18 10/11/18 15:00 23:00 07:00 Intake Total 600 ml 690 ml 100 ml Output Total 2354 ml 275 ml 325 ml Balance -1754 ml 415 ml -225 ml DEB TELLES MD 10/11/18 1332: PROGRESS NOTES Assessment Patient seen and examined. Agree with ORNAMENTAL PLASTERER HELPER's assessment and plan. Acute on chronic diastolic heart failure improved since admission. Continue diuretics. CAD status clinically stable. Patient had recent PCI/stent to LAD. Plan for staged PCI to RCA and OM/LCx at a later date by primary correctional supervisor lieutenant. Permanent atrial fibrillation rate controlled. Previous medical records reviewed. There is conflicting data on the severity of aortic stenosis. Consider SO for further evaluation - defer to primary correctional supervisor lieutenant SENA ROSE APRN Oct 11, 2018 09:53 DEB TELLES MD Oct 11, 2018 13:32
[2018-10-11 10:27] VITALS: BP 115/68
[2018-10-11 15:14] VITALS: BP 150/85
[2018-10-11] MEDS ORDERED: NON FORMULARY ITEM (Warfarin Sodium (Coumadin) 1 TAB) PO SCH (16:00)
[2018-10-11] MEDS ORDERED: WARFARIN 5 MG TABLET. PO SCH (16:00)
[2018-10-11 19:27] VITALS: BP 110/74
[2018-10-11] MEDS: POTASSIUM CHLORIDE 20 MEQ TABLET.ER. PO SCH (21:46)
[2018-10-11] MEDS: ACETAMINOPHEN 325 MG TABLET PO PRN (21:46)
[2018-10-11] MEDS: MELATONIN 3 MG TABLET PO SCH (21:46)
[2018-10-11] MEDS: TAMSULOSIN 0.4 MG CAP.ER.24H. PO SCH (21:46)
[2018-10-11 22:57] VITALS: BP 115/67
--- NOTE | 2018-10-12 02:00 | PN ---
DATE: 10/11/2018 SUBJECTIVE: The patient is resting slightly propped up in bed, in no apparent respiratory distress. He is awake, alert. On questioning him, he denied any complaint, in particular denied any pain. Apparently, he has eaten his lunch without difficulty. Nursing staff did not voice any concern and that he had an uneventful night. OBJECTIVE: GENERAL: When I examined him, he looked pale, but no jaundice, cyanosis, lymphadenopathy or thyromegaly. No jugular venous distension. No lower limb edema. VITAL SIGNS: Her heart rate was 71, blood pressure was 150/85, temperature was 98.2, respiratory rate was 20, and oxygen saturation was 99% on room air. HEAD, EYES, EARS, NOSE AND THROAT: Showed normocephalic, atraumatic. NECK: Supple. HEART: Showed normal first and second heart sounds with no gallop, rub or murmur. CHEST: Clear to auscultation. No crepitation or rhonchi. ABDOMEN: Distended, soft with no tenderness. No guarding or rigidity. No organomegaly. Hernial orifice intact. Bowel sounds normal. NEUROLOGIC: He is awake, alert, responding appropriately. All cranial nerves are intact. He moves upper extremities to much good extent than the lower extremities. He has chronic venous stasis of both lower extremities. His intake over the last 24 hours was 410, output was 5600. LABORATORY DATA: As of this morning showed a serum sodium of 139, potassium 3.4, chloride 100, bicarbonate 32, anion gap of 7, BUN 19, creatinine 0.8, estimated GFR was 94 mL per minute. His glucose was 140, calcium was 7.9. His white cell count was 7500, hemoglobin 8.8, hematocrit 28, MCV was 86 and platelet count of 256,000. ASSESSMENT: 1. Altered mental status, likely due to narcotic overdose, resolved. I have stopped his Lyrica and oxycodone initially and then I re-introduced them at a lower dose. The patient is now continued to be awake, alert, responding appropriately. 2. Acute on chronic diastolic congestive heart failure, clinically well compensated. 3. Acute on chronic kidney injury. His creatinine came down from 1.7-0.8. 4. The patient has also coronary artery disease status post percutaneous intervention with stent deployment. 5. Chronic peripheral vascular disease. 6. Hyperlipidemia. 7. Hypertension. PLAN: To continue with oral Lasix. I will start also on potassium supplement and also continue with ciprofloxacin as he has also grown Pseudomonas aeruginosa from his urine culture, sensitive to ciprofloxacin. ALFA MARTINEZ MD DR: JULIA/jason JOB#: [id number] / [id number]
[2018-10-12 06:02] VITALS: BP 102/66
[2018-10-12 06:59] LABS: MAGNESIUM 1.6 mg/dL (1.8-2.4); POTASSIUM 3.7 mmol/L (3.5-5.1)
[2018-10-12] MEDS: oxyCODONE IR 5 MG TABLET PO PRN (07:41)
[2018-10-12] MEDS: MULTIVITAMIN with MINERAL TABLET. PO SCH (08:19)
[2018-10-12] MEDS: DOCUSATE SODIUM 100 MG CAPSULE PO SCH (08:19)
[2018-10-12] MEDS: FERROUS SULFATE 325 MG TABLET. PO SCH (08:19)
[2018-10-12] MEDS: CHOLECALCIFEROL (VITAMIN D3) 1,000 UNIT TABLET PO SCH (08:19)
[2018-10-12] MEDS: CLOPIDOGREL BISULFATE 75 MG TABLET PO SCH (08:19)
[2018-10-12] MEDS: EZETIMIBE 10 MG TABLET PO SCH (08:20)
[2018-10-12] MEDS: CALCIUM CARB/VIT D3 500/200 TABLET PO SCH (08:20)
[2018-10-12] MEDS: CIPROFLOXACIN HCL 500 MG TABLET PO SCH (08:20)
[2018-10-12] MEDS: POTASSIUM CHLORIDE 20 MEQ TABLET.ER. PO SCH (08:20)
[2018-10-12] MEDS: SERTRALINE 50 MG TABLET. PO SCH (08:20)
[2018-10-12] MEDS: PREGABALIN 50 MG CAPSULE PO SCH (08:21)
[2018-10-12 08:22] VITALS: BP 102/66
[2018-10-12] MEDS: METOPROLOL TART IMMED RELEASE 50 MG TABLET PO SCH (08:22)
[2018-10-12] MEDS: MESALAMINE 1.2 GM TABLET.DR PO SCH (08:22)
[2018-10-12] MEDS: CETIRIZINE HCL 10 MG TABLET PO SCH (08:22)
[2018-10-12] MEDS: FUROSEMIDE 40 MG TABLET PO SCH (08:22)
[2018-10-12] MEDS: NYSTATIN TOPICAL POWDER 15GM BOTTLE. TP SCH (08:24)
[2018-10-12] MEDS: SODIUM CHLORIDE 0.65% NASAL SPRAY 45ML BOTTLE. NS PRN (08:24)
[2018-10-12] MEDS: ZINC OXIDE 20% TOPICAL OINTMENT 28GM TUBE. TP SCH (08:24)
[2018-10-12] MEDS: INSULIN LISPRO 300 UNITS/3 ML INSULN.PEN. SQ SCH (08:28)
[2018-10-12] MEDS ORDERED: oxyCODONE IR 5 MG TABLET PO STA (09:45)
--- NOTE | 2018-10-12 21:54 | PN ---
DATE: 10/11/2018 SUBJECTIVE: The patient denies any new medical neurological complaints. He continues to complain of pain of the right shoulder, ribs and hips. He described his pain as pins and needles. He denies headaches, visual disturbances, chest pain, shortness of breath or palpitation. The patient stated the best thing for him is to take oxycodone for pain and go back home. OBJECTIVE: GENERAL: Obese male, not in acute distress. VITAL SIGNS: Blood pressure is 127/73, respiratory rate 20, pulse is 91 and regular, temperature 98.4, and oxygen saturation 97% on 2 liters by nasal cannula. HEENT: Normocephalic, atraumatic, otherwise unremarkable. NECK: Supple. Negative for carotid bruit, lymphadenopathy or thyromegaly. LUNGS: Clear to A and P. CARDIOVASCULAR: Regular rate and rhythm, normal S1, S2. ABDOMEN: Soft. Bowel sounds positive. EXTREMITIES: Positive for extensive venous stasis and edema. NEUROLOGICAL EXAM: Mental Status: The patient is alert and oriented x2. The speech is fluent. There is no language dysfunction. Otherwise unchanged. Cranial nerves are intact. Motor examination revealed diffuse of the lower extremities. He moves left upper extremity freely, but decreased range of motions of the right upper extremity secondary to severe right shoulder pain. He has very slight movement of the toes. Otherwise, he could not move his lower extremity secondary to pain and weakness. Sensory examination revealed diminished pinprick and light touch senses throughout. Deep tendon reflexes were hypoactive with absent Achilles responses. LABORATORY DATA: CBC revealed white blood cells of 7500, hemoglobin 8.8, hematocrit 28.3, and platelet count 256,000. IMPRESSION: 1. Acute encephalopathy - improved, probably due to overdose on medications. 2. Chronic congestive heart failure. 3. Anemia. 4. Chronic peripheral vascular disease, peripheral neuropathy, hypertension, hyperlipidemia, renal insufficiency and coronary artery disease, status post stent placement. RECOMMENDATIONS: Continue with current conservative management with diuretics and treat the underlying urinary tract infections. M Jewels JEAN-BAPTISTE MD DR: JEM/jason JOB#: [id number] / [id number]
--- NOTE | 2018-10-12 22:10 | PN ---
DATE: 10/12/2018 SUBJECTIVE: The patient continues to complain of severe pain all over. He said, "Please don't touch me because I've a lot of pain. He asked for oxycodone and be discharged this morning. OBJECTIVE: GENERAL APPEARANCE: Obese male, not in acute distress. VITAL SIGNS: Blood pressure is 102/66, respiratory rate 20, pulse is 94, temperature is 98.3, oxygen saturation 97% on 2 liters via nasal cannula. HEENT: Normocephalic, atraumatic, otherwise unremarkable. NECK: Supple. Negative for carotid bruit, lymphadenopathy or thyromegaly. LUNGS: With diminished breath sounds. CARDIOVASCULAR: Regular rate and rhythm. S1, S2. ABDOMEN: Soft. Bowel sounds positive. EXTREMITIES: Positive for severe venous stasis of the lower extremities. NEUROLOGICAL: Mental status: The patient is alert and oriented x 3. Speech is fluent. There is no language dysfunction, otherwise unremarkable. Cranial nerves are intact. Motor examination revealed diffuse general weakness of the lower extremities. The patient moves his left upper extremity freely, but not the right upper extremity secondary to severe pain. Sensory examination revealed diminished pinprick and light touch senses in the upper and lower extremities. Deep tendon reflexes were asymmetric and hypoactive with absent Achilles responses. IMPRESSION: 1. Acute encephalopathy -- resolved. 2. Generalized pain syndrome, probably multifactorial including peripheral vascular disease and peripheral neuropathy. 3. Hypertension, hyperlipidemia, congestive heart failure, urinary tract infection and coronary artery disease. RECOMMENDATIONS AND PLAN: Continue with current management and pain control. The patient should be followed by Cardiology at [facility]. M Jewels JEAN-BAPTISTE MD DR: JEM/jason JOB#: [id number] / [id number]
== END 2018-10-12 10:56 | DRG 70 ==
LOC: ER 07:43 → 1 SOUTH 08:42 → ER 09:45 → ICU 16:23 → 1 SOUTH 10-09 14:27
PROVIDERS: ADMIT Internal Medicine; ATTEND Internal Medicine
DX: G93.49 Other encephalopathy (principal); I50.33 Acute on chronic diastolic (congestive) heart failure; R65.11 Systemic inflammatory response syndrome (SIRS) of non-infectious origin with acute organ dysfunction; N17.9 Acute kidney failure, unspecified; I13.0 Hypertensive heart and chronic kidney disease with heart failure and stage 1 through stage 4 chronic kidney disease, or unspecified chronic kidney disease; N39.0 Urinary tract infection, site not specified; Z68.42 Body mass index [BMI] 45.0-49.9, adult; F32.9 Major depressive disorder, single episode, unspecified; E11.22 Type 2 diabetes mellitus with diabetic chronic kidney disease; E11.42 Type 2 diabetes mellitus with diabetic polyneuropathy; E66.01 Morbid (severe) obesity due to excess calories; E11.51 Type 2 diabetes mellitus with diabetic peripheral angiopathy without gangrene; E83.41 Hypermagnesemia; E86.0 Dehydration; E87.5 Hyperkalemia; F17.200 Nicotine dependence, unspecified, uncomplicated; G47.00 Insomnia, unspecified; G47.33 Obstructive sleep apnea (adult) (pediatric); E78.5 Hyperlipidemia, unspecified; N40.1 Benign prostatic hyperplasia with lower urinary tract symptoms; N39.498 Other specified urinary incontinence; I08.0 Rheumatic disorders of both mitral and aortic valves; H40.9 Unspecified glaucoma; D64.9 Anemia, unspecified; I25.10 Atherosclerotic heart disease of native coronary artery without angina pectoris; I87.8 Other specified disorders of veins; N18.9 Chronic kidney disease, unspecified; I27.20 Pulmonary hypertension, unspecified; I48.2 Chronic atrial fibrillation; Z96.1 Presence of intraocular lens; Z86.711 Personal history of pulmonary embolism; Z79.01 Long term (current) use of anticoagulants; Z86.718 Personal history of other venous thrombosis and embolism; Z85.828 Personal history of other malignant neoplasm of skin; Z79.899 Other long term (current) drug therapy; Z87.442 Personal history of urinary calculi; Z95.5 Presence of coronary angioplasty implant and graft; Z88.8 Allergy status to other drugs, medicaments and biological substances; Z91.048 Other nonmedicinal substance allergy status
CPT/HCPCS: 36415; 70450; 71045; 80048; 80053; 81001; 82140; 82803; 82947; 83605; 83735; 83880; 84484; 85025; 85027; 85610; 85651; 86140; 87040; 87086; 87186; 87641; 93005; 96365; J0696; J1815; J1940; J1953; J2310; 99285-25; J7030